=== PATIENT | male | born 1975 | race Caucasian/White ===

== ENCOUNTER 2019-09-15 09:48 | Emergency (ER) | payer BC, SELFPAY ==
--- NOTE | ~2019-09-15 | XR_ITS ---
EXAMINATION: XR tibia fibula RT 2V EXAM DATE: 09/15/2019 10:33 INDICATION: Initial encounter following injury, with pain of the right tibia/fibula. Anterior abrasi on and laceration. TECHNIQUE: Right tibia/fibula frontal and lateral projections obtained and reviewed. Correlation is m elias to right ankle exam from 2018. FINDINGS: Right tibial and fibular shafts unremarkable. There are no acute fractures or dislocations identified. There is no subcutaneous gas. There is an anterior laceration identified, with several small densities identified in the region, could be gravel or other debris at the operation site. Thi s finding has been indicated, marked on the examination for review, clinical correlation. There are no radiopaque foreign bodies. IMPRESSION: 1. Right tibia/fibula exam without acute osseous findings. 2. Anterior laceration, several small foreign bodies in or on the patient. Reviewed, dictated and finalized at location A.
[2019-09-15 09:55] VITALS: BP 172/78; PULSE 73; RESP 18; TEMP 37.1; O2SAT 99
--- NOTE | 2019-09-15 10:19 | ED.WOUNDLAC ---
HPI - Wound/Laceration General Chief Complaint: Wound/Laceration Stated Complaint: right leg laceration Time Seen by Provider: 09/15/19 10:10 Source: patient Mode of arrival: ambulatory Limitations: no limitations History of Present Illness HPI narrative: Patient presents for evaluation of 1.5 cm avulsion type laceration with surrounding abrasions that he sustained at approximately 6 PM yesterday while trying to jump over a retaining wall for fun. Patient reports tenderness and swelling to the area. Patient denies injuring any other areas, hitting his head, or having any loss of consciousness. Patient states that his only health issue is hypercholesterol which is managed by his primary care Dino Kunz. Patient states that he is up-to-date on tetanus and has had over the last 3 years. Patient denies any other symptoms or concerns. Related Data Home Medications Medication Instructions Recorded Confirmed simvastatin 10 mg DAILY 02/03/19 02/03/19 Allergies Allergy/AdvReac Type Severity Reaction Status Date / Time No Known Allergies Allergy Unknown Verified 09/15/19 10:01 Review of Systems Review of Systems: Narrative: CONSTITUTIONAL: Denies fever, chills, or sweats. EYES: Denies visual changes, redness, or discharge. ENT: Denies rhinorrhea, congestion, sore throat, or otalgia. CARDIOVASCULAR: Denies chest pain, palpitations, or edema. RESPIRATORY: Denies cough or dyspnea. GASTROINTESTINAL: Denies abdominal pain, nausea, vomiting, or diarrhea. GENITOURINARY: Denies dysuria or hematuria. SKIN: Reports laceration and abrasion denies itching. MUSCULOSKELETAL: Denies back pain, joint pain, or myalgia. NEUROLOGIC: Denies headache, numbness, dizziness, or weakness. PSYCHIATRIC: Denies anxiety or depression. [facility] Past Medical History Medical History (Updated 09/15/19 @ 11:05 by Brijesh Garces PA-C) Hypercholesterolemia Social History Social History Gender identity (if verbalized by the patient): Male Exam Narrative: Exam Narrative: GENERAL: Well-appearing, well-nourished, and in no acute distress. HEAD: Normocephalic, atraumatic. EYES: PERRLA and EOMI. ENT: Nares clear, no rhinorrhea or epistaxis. Mucous membranes moist. Oropharynx without tonsillar hypertrophy exudate or other lesions. Bilateral TMs pearly caro nonbulging NECK: Supple. No adenopathy or masses. CHEST: Clear to auscultation. No respiratory distress. No wheezes rales or rhonchi HEART: Regular rate and rhythm. Normal peripheral pulses. EXTREMITIES: Normal range of motion. No edema. SKIN: Warm, dry. Approx 1.5cm avulsion type laceration to the distal left sethi with surrounding abrasions. No active bleeding. Foreign bodies not appreciated. Small abrasion to the medial inferior aspect of the right knee. No underlying tenderness or pain. NEURO: No focal deficits. Alert and oriented x3. PSYCH: Normal mood and affect. Course Vital Signs Vital signs: Vital Signs Temperature 98.7 F 09/15/19 09:55 Pulse Rate 73 09/15/19 09:55 Respiratory Rate 18 09/15/19 09:55 Blood Pressure 172/78 H 09/15/19 09:55 Pulse Oximetry 99 09/15/19 09:55 Temperature 98.7 F 09/15/19 09:55 Pulse Rate 73 09/15/19 09:55 Respiratory Rate 18 09/15/19 09:55 Blood Pressure 172/78 H 09/15/19 09:55 Pulse Oximetry 99 09/15/19 09:55 MDM - Wound/Laceration MDM Narrative Medical decision making narrative: Discussed with the patient since it has been 16 hours since the time of injury risk of infection would be too great to attempt suturing and the wound must heal from the inside out to avoid creating abscess. The wound edges are also more of an avulsion type instead of linear laceration so even steri strips wound not be beneficial. Discussed wound care instructions. Discussed xray of tibia due to underlying tenderness to make sure there is not underlying fracture. No underlying fracture note
== END 2019-09-15 11:29 | disposition home or self-care (01) ==
PROVIDERS: Emergency Provider Emergency Medicine; PCP Nurse Practitioner Family
DX: S81.822A Laceration with foreign body, left lower leg, initial encounter (principal); S80.211A Abrasion, right knee, initial encounter; E78.00 Pure hypercholesterolemia, unspecified; X58.XXXA Exposure to other specified factors, initial encounter
CPT/HCPCS: 73590; 99283

== ENCOUNTER → 2020-09-04 11:18 | Outpatient (CLI) | payer BC, SELFPAY ==
--- NOTE | ~2020-09-04 | XR_ITS ---
XR lumbar spine 2-3V DATE: 09/04/2020 11:42 INDICATION: Low back pain TECHNIQUE: AP, lateral, coned lateral lumbosacral views COMPARISON: 12/19/2016 CT abdomen pelvis FINDINGS: Normal alignment of the lumbar spine. No fracture or bone destruction or spondylolisthesis. Lumbar and lumbosacral interspaces are well preserved. The pedicles are intact. The sacroiliac joint s appear normal. IMPRESSION: No significant abnormality Reviewed, dictated and finalized at location A. IMPRESSION: No significant abnormality
== END ==
PROVIDERS: PCP Nurse Practitioner Family; Visit Provider Nurse Practitioner Family
DX: M54.5 Low back pain (principal); M25.571 Pain in right ankle and joints of right foot
CPT/HCPCS: 72100

== ENCOUNTER 2022-01-07 10:14 | Emergency (ER) | payer BC, SELFPAY ==
[2022-01-07 12:03] VITALS: BP 136/93; PULSE 71; RESP 24; TEMP 36.6; O2SAT 100
--- NOTE | 2022-01-07 12:49 | ED.URI ---
HPI - URI/Sore Throat General Chief Complaint: Upper Respiratory Infection Stated Complaint: cough Source: patient Mode of arrival: ambulatory History of Present Illness HPI Narrative: This is a 46-year-old male who presented to our urgent care with complaints of having a cough and congestion . Patient is on here a couple weeks ago treated for sinusitis. Patient notes that his symptoms improved but they have come back. He did not take anything at home for his symptoms. The patient denies SOB, CP, palpitation, extremity numbness, lightheadedness, dizziness, constipation, diarrhea, chills, or fever. Discharge instructions reviewed with patient, as well as provided in writing per nursing staff. The instructions also include specific and strict return/GO TO THE ER as well as f/u information. All questions have been answered, and the patient and/or family deny any further questions with discharge and discharge plan. Related Data Home Medications Medication Instructions Recorded Confirmed simvastatin 10 mg tablet 10 mg DAILY 02/03/19 02/03/19 Allergies Allergy/AdvReac Type Severity Reaction Status Date / Time No Known Allergies Allergy Unknown Verified 09/15/19 10:01 Review of Systems Review of Systems: A 14 organ system Review of Systems was performed and pertinent positives included in the HPI, otherwise remaining ROS is negative. [facility] Past Medical History Medical History Hypercholesterolemia Social History Social History Gender identity (if verbalized by the patient): Male Exam Narrative: GENERAL: This is a well-nourished, well-developed patient, in no apparent distress. HEAD: normocephalic, atraumatic. EYES: PERRL. Sclera clear/white. Vision is grossly intact. EARS: External ears normal, auditory canals clear and without drainage, TMs normal without perforation. Hearing grossly intact. NOSE: External nose normal with no obvious nasal discharge, nares without redness, no rhinorrhea. THROAT: Mucous membranes moist, posterior pharynx clear. NECK: Neck supple, non-tender without lymphadenopathy, masses or thyromegaly. CARDIOVASCULAR: Regular rate and rhythm without murmurs, gallops, or rubs. RESPIRATORY: Clear to auscultation. Breath sounds equal bilaterally. No wheezes, rales, or rhonchi. GASTROINTESTINAL: Abdomen soft, non-tender, nondistended. Bowel sounds are active. No hepato-splenomegaly, or palpable masses. No guarding. SKIN: warm, intact with no suspicious lesions or rash, good texture and turgor. NEURO: awake, alert, and oriented to person, place and time. There were no obvious focal neurologic abnormalities. EXTREMITIES: Normal range of motion. No edema. No calf tenderness. Course Course Emergency Course: Patient will be treated for influenza a with Tessalon Perles guaifenesin and Tamiflu Level of Care: Express Care Visit Vital Signs Vital signs: Vital Signs Temperature 97.8 F 01/07/22 12:03 Pulse Rate 71 01/07/22 12:03 Respiratory Rate 24 H 01/07/22 12:03 Blood Pressure 136/93 H 01/07/22 12:03 Pulse Oximetry 100 01/07/22 12:03 Oxygen Delivery Room Air 01/07/22 12:03 Temperature 97.8 F 01/07/22 12:03 Pulse Rate 71 01/07/22 12:03 Respiratory Rate 24 H 01/07/22 12:03 Blood Pressure 136/93 H 01/07/22 12:03 Pulse Oximetry 100 01/07/22 12:03 Oxygen Delivery Room Air 01/07/22 12:03 MDM - URI/Sore Throat Differential Diagnosis Differential diagnosis: Likely upper respiratory infection, viral infection and influenza Lab Data Labs: Influenza A Screen Positive Reference Range: Negative Influenza B Screen Negative Reference Range: Negative Discharge Plan Discharge Clinical Impression: Influenza Nella
== END 2022-01-07 12:55 | disposition home or self-care (01) ==
PROVIDERS: Emergency Provider Nurse Practitioner; PCP Nurse Practitioner Family
DX: J10.1 Influenza due to other identified influenza virus with other respiratory manifestations (principal); E78.00 Pure hypercholesterolemia, unspecified
CPT/HCPCS: 87804; 99213; G0463

== ENCOUNTER 2022-06-21 15:41 | Outpatient (CLI) | payer BC, SELFPAY ==
--- NOTE | ~2022-06-21 | CT_ITS ---
EXAMINATION: CT sinus wo con DATE: 06/22/2022 06:44 INDICATION: Chronic sinusitis TECHNIQUE: Computed tomography (CT) of the paranasal sinuses was performed without intravenous contra st. The dose-length product was 258.77 mGy-cm. Automated exposure control and iterative reconstructio n technique were employed. COMPARISON: CT dated 05/20/2015 FINDINGS: There is mucosal thickening of the right maxillary sinus. Rightward nasal septal deviation. Ostiomeatal units are patent. No air-fluid levels. No mucoperiosteal reaction. Mastoids are pneumati zed. IMPRESSION: 1. Minimal right maxillary sinus disease. Reviewed, dictated and finalized at location B.
== END 2022-06-21 15:42 ==
LOC: MICIMG 15:43
PROVIDERS: PCP Otolaryngology; Visit Provider Otolaryngology
DX: J32.9 Chronic sinusitis, unspecified (principal)
CPT/HCPCS: 70486

== ENCOUNTER 2022-10-07 10:53 | Outpatient (CLI) | payer BC, SELFPAY ==
--- NOTE | ~2022-10-07 | CT_ITS ---
EXAMINATION: CT abdomen pelvis w con DATE: 10/07/2022 11:12 INDICATION: Right lower quadrant pain TECHNIQUE: Computed tomography (CT) of the abdomen and pelvis was performed with 100 cc Omnipaque 350 intravenous contrast. The dose-length product was 1068.57 mGy-cm. Automated exposure control and ite rative reconstruction technique were employed. COMPARISON: CT dated 12/19/2016. FINDINGS: Lung bases unremarkable. Heart size normal. No significant pleural or pericardial effusion. The liver, spleen, pancreas, adrenal glands are unremarkable. There is a subcentimeter hypodensity in the left kidney, most likely benign cysts. There is a 3.3 cm right renal cyst. There is a 3 mm proxi mal right ureteral stone with mild hydronephrosis. There is mild proximal ureteral ileal enhancement. Cannot exclude ascending urinary tract infection. Gallbladder is present. Nonobstructive bowel gas p attern. Normal appendix. Colonic diverticulosis without evidence for diverticulitis. No abnormal pelv ic masses or fluid collections. Bladder is unremarkable. IMPRESSION: 1. Proximal right ureteral stone measuring 3 mm with mild hydronephrosis. Mild urothelial enhancement , suspicious for ascending urinary tract infection. Reviewed, dictated and finalized at location B. IMPRESSION: 1. Proximal right ureteral stone measuring 3 mm with mild hydronephrosis. Mild urothelial enhancement, suspicious for ascending urinary tract infection.
== END 2022-10-07 10:54 ==
PROVIDERS: PCP Nurse Practitioner Family; Visit Provider Nurse Practitioner Family
DX: R10.31 Right lower quadrant pain (principal); N20.1 Calculus of ureter
CPT/HCPCS: 74177; Q9967

== ENCOUNTER 2023-05-12 07:59 | Emergency (ER) | payer BC, SELFPAY ==
--- NOTE | ~2023-05-12 | XR_ITS ---
EXAMINATION: XR ankle RT min 3V DATE: 05/12/2023 08:36 INDICATION: Right ankle injury. TECHNIQUE: 4 views of right ankle were obtained. COMPARISON: Right tibia and fibula radiographs 09/15/2019 FINDINGS: There is a comminuted fracture of distal tip of fibula. Joint spaces are normal. There is a nkle soft tissue swelling. IMPRESSION: 1. Comminuted fracture of distal tip of fibula. Reviewed, dictated and finalized at location A.
[2023-05-12 08:05] VITALS: BP 169/98; PULSE 85; RESP 18; TEMP 36.7; O2SAT 98
[2023-05-12] MEDS: IBUPROFEN 400 MG TABLET PO (09:25)
[2023-05-12] MEDS: ACETAMINOPHEN 500 MG TABLET 1000 MG PO (09:25)
--- NOTE | 2023-05-12 14:05 | ED.LOWEXIN ---
HPI - Extremity Injury (Lower) General Chief Complaint: Extremity Injury, Lower Stated Complaint: right ankle injury Time Seen by Provider: 05/12/23 08:14 History of Present Illness HPI Narrative: Patient presenting here after he tripped and fell last night and twisted his right ankle. Is hurting and swollen today so came in here. He has been limping on it. Related Data Home Medications Medication Instructions Recorded Confirmed simvastatin 10 mg tablet 10 mg PO DAILY 02/03/19 01/07/22 Allergies Allergy/AdvReac Type Severity Reaction Status Date / Time No Known Allergies Allergy Unknown Verified 05/12/23 08:00 Review of Systems Review of Systems: M/S: Tenderness right ankle SKIN: Bruising right ankle NEURO: [No focal numbness or weakness] PMFSH Past Medical History Medical History Hypercholesterolemia Social History Social History Gender identity (if verbalized by the patient): Male Exam Narrative: EXAMINATION OF ORGAN SYSTEMS/BODY AREAS: Constitutional: Vital signs per nursing GENERAL:[No acute distress, non-toxic appearing.] HEAD: Normal with no signs of head trauma. EYES: EOMI, conjunctiva normal ENT: Hearing grossly intact LUNGS: Nonlabored breathing. HEART: [Regular rate and rhythm], normal DP pulses and good cap refill ABD: [Soft], [nontender to palpation] EXT: Normal range of motion, tenderness to palpation and swelling right lateral malleolus SKIN: Bruising and swelling right ankle NEURO: [Alert and oriented x 3. No gross focal sensory or strength deficits.] PSYCH: Normal affect Course Vital Signs Vital signs: Vital Signs Temperature 98.1 F 05/12/23 08:05 Pulse Rate 85 05/12/23 08:05 Respiratory Rate 18 05/12/23 08:05 Blood Pressure 169/98 H 05/12/23 08:05 Pulse Oximetry 98 05/12/23 08:05 Temperature 98.1 F 05/12/23 08:05 Pulse Rate 85 05/12/23 08:05 Respiratory Rate 18 05/12/23 08:05 Blood Pressure 169/98 H 05/12/23 08:05 Pulse Oximetry 98 05/12/23 08:05 Procedures Orthopedic Splinting/Casting Injury #1: Splinting/Casting Date: 05/12/23 Splinting/Casting Time: 10:00 Side: right Lower Extremity Injury Location: ankle Lower Extremity Immobilizer: posterior splint Splint: customized in ED Pre-Procedure Neuro Vascular Exam: normal Post-Procedure Neuro Vascular Exam: normal MDM - Extremity Injury (Lower) MDM Narrative Medical decision making narrative: Patient presents here with right ankle twisting injury, x-ray does show distal fibular fracture, patient will be placed in ankle splint, he declined any narcotics, stable for discharge with follow-up to Orthopedics, patient and at bedside agreeable to this plan. Discharge Plan Discharge Clinical Impression: Closed fibular fracture Patient Disposition: Home, Self-Care Condition: Stable Instructions: Antibiotic Form, Ankle Fracture (ED) Prescriptions: No Action simvastatin 10 mg tablet 10 mg PO DAILY oseltamivir [Tamiflu] 75 mg capsule 75 mg PO Q12H 5 Days Qty: 10 0RF benzonatate 200 mg capsule 200 mg PO TID PRN (Reason: cough) Qty: 30 0RF guaifenesin 400 mg tablet 400 mg PO Q4H PRN (Reason: congestion) Qty: 30 0RF albuterol sulfate [Proventil HFA] 90 mcg/actuation HFA aerosol inhaler 2 puff inhalation QID PRN (Reason: cough) Qty: 6.7 0RF Follow-up/Referrals: Ran Teran MD [Physician] - 3 Days Ivonne Kunz APRN [Primary Care Provider] -
== END 2023-05-12 10:03 | disposition home or self-care (01) ==
PROVIDERS: Emergency Provider Emergency Medicine; PCP Nurse Practitioner Family
DX: S82.831A Other fracture of upper and lower end of right fibula, initial encounter for closed fracture (principal); E78.00 Pure hypercholesterolemia, unspecified; W01.0XXA Fall on same level from slipping, tripping and stumbling without subsequent striking against object, initial encounter; X50.9XXA Other and unspecified overexertion or strenuous movements or postures, initial encounter
CPT/HCPCS: 29515; 73610; 99284; A9270

== ENCOUNTER 2023-08-28 15:35 | Outpatient (CLI) | payer BC, SELFPAY ==
--- NOTE | ~2023-08-28 | MR_ITS ---
MRI of the cervical spine Clinical History: Paresthesia Technique: Axial T2-weighted and gradient images, and sagittal T1-weighted, T2-weighted, and STIR kamran ges were acquired. COMPARISON: 07/19/2016 Findings: There is no fracture or subluxation of the cervical spine. Vertebral bodies maintain normal height and line. There is intervertebral disc prosthesis at C6-C7 with associated focal susceptibili ty artifact. There is probable mild atypical intraosseous hemangioma of the T2 vertebral body, which is increased in extent from prior exam. No other significant bone marrow signal abnormality seen. At C2-C3, there is no significant disc bulge or herniation. There is minimal facet arthropathy. No ce ntral canal stenosis, cord compression, or definite neural foraminal narrowing. At C3-C4, there is mild degenerative disc change is mild disc osteophyte complex. No canal stenosis o r cord compression. There is probable mild bilateral neural foraminal narrowing. At C4-C5, there is no significant disc bulge or herniation. No spinal canal stenosis or cord compress ion. Possible minimal bilateral neural foraminal narrowing. At C5-C6, there is mild disc osteophyte complex, with minimal flattening of the ventral cord. Bilater al neural foramina are preserved. At C6-C7, there is no disc bulge or herniation. No spinal canal stenosis or cord compression. Probabl e mild left neural foraminal narrowing. Right neural foramen preserved. Paravertebral soft tissues are unremarkable. Impression: Mild spondylosis, as above, probably worst at C5-C6 with minimal flattening the ventral cord. Intervertebral disc prosthesis at C6-C7. 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 Reviewed, dictated and finalized at [facility]. Impression: Mild spondylosis, as above, probably worst at C5-C6 with minimal flattening the ventral cord. Intervertebral disc prosthesis at C6-C7. 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
== END 2023-08-28 15:36 | disposition home or self-care (01) ==
PROVIDERS: PCP Nurse Practitioner Family; Visit Provider Nurse Practitioner Family
DX: R20.0 Anesthesia of skin (principal); R20.2 Paresthesia of skin; M47.892 Other spondylosis, cervical region
CPT/HCPCS: 72141

== ENCOUNTER 2023-10-04 17:32 | Emergency (ER) | payer BC, SELFPAY ==
--- NOTE | ~2023-10-04 | XR_ITS ---
EXAMINATION: XR shoulder RT min 2V DATE: 10/04/2023 18:11 INDICATION: Right shoulder pain post injury TECHNIQUE: AP internally and externally rotated, AP oblique externally rotated and transscapular Y vi ews of the right shoulder were obtained. COMPARISON: None FINDINGS: Normal alignment. No fracture. Glenohumeral joint is normal. Mild acromioclavicular osteoarthritis. Soft tissues are unremarkable. Visualized portions of the lungs are clear. Metallic likely interbody fusion device projecting over C6-C7 likely for lower cervical anterior spinal fusion. IMPRESSION: Mild right acromio clavicular osteophytes. No acute osseous abnormality. Reviewed, dictated and finalized at location A.
[2023-10-04 17:35] VITALS: BP 171/105; PULSE 93; RESP 19; TEMP 36.6; O2SAT 97
--- NOTE | 2023-10-04 17:52 | ED.UPPEXIN ---
HPI - Extremity Injury (Upper) General Chief Complaint: Extremity Injury, Upper Stated Complaint: R Shoulder Pain Time Seen by Provider: 10/04/23 17:41 Source: patient Mode of arrival: ambulatory Limitations: no limitations History of Present Illness HPI narrative: Patient is a 47 y/o male who presents to the ED with c/o R shoulder pain. Patient reports he was wearing a get trash into a trash can just prior to arrival and attempted to throw the bag over his shoulder with his R hand. He felt a pop in his R shoulder with sharp pain. has had limited range of motion since then. Denies any other injuries. Denies numbness. Took ibuprofen prior to arrival. Related Data Home Medications Medication Instructions Recorded Confirmed pravastatin 40 mg tablet 40 mg PO DAILY 05/16/23 08/14/23 Allergies Allergy/AdvReac Type Severity Reaction Status Date / Time No Known Allergies Allergy Unknown Verified 08/14/23 10:58 Review of Systems Review of Systems: All systems reviewed & are unremarkable except as noted in HPI. All systems reviewed & are unremarkable except as noted in HPI and below PMFSH Past Medical History Medical History (Updated 10/04/23 @ 19:00 by Rayna Cain PA-C) Closed fracture of right distal fibula Hypercholesterolemia Surgical History Surgical History H/O cervical discectomy Family History Family History (Updated 08/14/23 @ 11:09 by Jenny Diaz MA) Unknown Hypertension High cholesterol Father High cholesterol Heart disease Social History Social History (Updated 08/14/23 @ 11:00 by Jenny Diaz MA) Social History: caffeine use Smoking status: Never smoker Alcohol intake: current Drinks per week: 2 Substance use: never Do You Feel Safe in your Home?: Yes Lack of Transportation: No Lack of Food: Never True Current Housing: I Have Housing Concerned About Future Housing: No Difficulty Paying Gas/Electric Bills: No Difficulty Paying for Meds: No Currently Unemployed: No Living arrangements: with family Occupation/Education: occupation 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 HEAD: Normocephalic, atraumatic. RESPIRATORY: Airway patent, respirations nonlabored. CARDIOVASCULAR: Regular rate and rhythm. Radial pulses intact. MUSCULOSKELETAL: No gross deformities. Limited range of motion of right shoulder abduction, flexion, rotation. Tenderness to palpation throughout anterior proximal humerus. Sensation intact throughout right upper extremity. No tenderness throughout R elbow. SKIN: Warm, dry, normal color. NEURO: A&O X3. Speech clear. PSYCHIATRIC: Appropriate mood and affect. Normal interaction. Course Vital Signs Vital signs: Vital Signs Temperature 97.9 F 10/04/23 17:35 Pulse Rate 93 10/04/23 17:35 Respiratory Rate 19 10/04/23 17:35 Blood Pressure 171/105 H 10/04/23 17:35 Pulse Oximetry 97 10/04/23 17:35 Oxygen Delivery Room Air 10/04/23 17:35 Temperature 97.9 F 10/04/23 17:35 Pulse Rate 93 10/04/23 17:35 Respiratory Rate 19 10/04/23 17:35 Blood Pressure 171/105 H 10/04/23 17:35 Pulse Oximetry 97 10/04/23 17:35 Oxygen Delivery Room Air 10/04/23 17:35 MDM - Extremity Injury (Upper) MDM Narrative Medical decision making narrative: Patient?s injury is consistent with musculoskeletal etiology. No signs of neurologic or vascular compromise on physical examination. Compartments are soft without signs of compartment syndrome. XR without acute osseous abnormality, showing osteophytes. Discussed imaging findings. Discussed likelihood of rotator cuff injury or muscular strain. Patient is felt to be stable for discharge home and further
[2023-10-04 19:02] VITALS: BP 150/89; PULSE 88; RESP 16; O2SAT 97
[2023-10-04] MEDS: HYDROcodone/acetaminophen (*CRX) 5-325 MG TABLET 1 TAB PO (19:02)
[2023-10-04 19:13] VITALS: BP 148/78; PULSE 89; RESP 15; O2SAT 100
== END 2023-10-04 19:15 | disposition home or self-care (01) ==
PROVIDERS: Emergency Provider Physician Assistant; PCP Nurse Practitioner Family
DX: S46.911A Strain of unspecified muscle, fascia and tendon at shoulder and upper arm level, right arm, initial encounter (principal); E78.00 Pure hypercholesterolemia, unspecified; M25.711 Osteophyte, right shoulder; X50.0XXA Overexertion from strenuous movement or load, initial encounter
CPT/HCPCS: 73030; 99283; A4565; A9270

== ENCOUNTER 2023-10-23 13:21 | Outpatient (CLI) | payer BC, SELFPAY ==
--- NOTE | ~2023-10-23 | MR_ITS ---
EXAMINATION: MR shoulder RT wo con DATE: 10/23/2023 14:22 INDICATION: Right shoulder pain. TECHNIQUE: Magnetic resonance imaging (MRI) of the right shoulder was performed without intravenous c ontrast. Sequences included axial PD-weighted FS FSE, coronal oblique PD-weighted FS FSE, coronal obl ique T2-weighted FS FSE, sagittal PD-weighted FS FSE, and sagittal T1-weighted SE. COMPARISON: None. FINDINGS: Coracoacromial arch: The acromion undersurface is curved in morphology (type II). The coracoacromial ligament is normal. M ild acromioclavicular osteoarthritis. Rotator cuff: Mild subscapularis tendinopathy without discrete tear. Full-thickness or near full-thickness articula r sided tear along the greater tuberosity involving the full AP width of the supraspinatus and infras pinatus tendons. There are few intact thin bursal sided fibers extending to the greater tuberosity ho wever is of indeterminate functional integrity and is also unclear whether these together form thick contiguous intact bursal surface or more likely separate intact fibers. There is also a portion of th e infraspinatus tendon which remains attached to the posterior aspect middle facet footplate with the sided tear extending up to 2.5 similar medial from the footplate. The articular sided tear margin is retracted up to 4.5 similar medially to the level of the rim of the glenoid. There is moderate tendi nopathy extending 2-3 cm medially from the tear margin. The teres minor tendon is normal. There is mi ld feathery muscular edema within the infraspinatus muscle belly. There are also small intramuscular ganglion cysts within the supraspinatus and infraspinatus muscle bellies standing up to 8 cm medially from the greater tuberosity. No fatty muscle atrophy suggesting the tears are recent. Biceps tendon, glenoid labrum and glenohumeral cartilage: Long head of the biceps tendon is normal. Focal mild labral degeneration at the 10:30-11:00 position of the posterior superior glenoid labrum. Remainder of the glenoid labrum is normal. There is mild pa rtial-thickness cartilage loss with smooth chondral surface along the humeral head. Moderate partial- thickness cartilage loss which appears to involve greater than 50% the cartilage thickness but with s mooth chondral surface along the cephalad third of the glenoid. Fluid: Small glenohumeral joint effusion with mild synovitis at the axillary, posterior and deep subscapular recesses of the joint space. No loose osteochondral bodies. Small amount of fluid in the subacromial /subdeltoid bursa which could be due to either mild bursitis or decompression of the glenohumeral jaylene nt effusion through the full-thickness component to the rotator cuff tear. Bones: Small low signal intensity bone island at the medial aspect of the humeral head. Otherwise normal mar row signal with no edema, fracture or pathologic marrow replacing process. IMPRESSION: 1. Full and/or near full-thickness articular sided tear along the entire AP width of the greater tube rosity of the entire supraspinatus and infraspinatus tendons. 2. Mild glenohumeral osteoarthritis with focal degeneration at the posterior superior glenoid labrum. Reviewed, dictated and finalized at location B. IMPRESSION: 1. Full and/or near full-thickness articular sided tear along the entire AP wid th of the greater tuberosity of the entire supraspinatus and infraspinatus tend ons. 2. Mild glenohumeral osteoarthritis with focal degeneration at the posterior martinez perior glenoid labrum.
== END 2023-10-23 13:22 | disposition home or self-care (01) ==
LOC: GOSHIMG 13:22
PROVIDERS: PCP Orthopaedic Surgery; Visit Provider Orthopaedic Surgery
DX: M19.011 Primary osteoarthritis, right shoulder (principal); M75.101 Unspecified rotator cuff tear or rupture of right shoulder, not specified as traumatic
CPT/HCPCS: 73221

== ENCOUNTER 2024-05-06 01:50 | Day surgery (SDC) | payer BC, SELFPAY ==
[2024-04-25 15:01] VITALS: BMI 29.9
--- OUTSIDE RECORDS SUMMARY | 2024-05-06 01:57 | XMS_ITS | Continuity of Care Document ---
Author Organization [facility] Address [address] [place] [address] Phone Care Team Providers Care Enrollment Advisor Name Role Phone Gary Kohler PT Unavailable Unavailable Procedures Procedure Date Therapeutic Activities Therapeutic Exercise Manual Therapy Therapeutic Activities Therapeutic Exercise Manual Therapy Therapeutic Activities Therapeutic Exercise Manual Therapy Therapeutic Activities Therapeutic Exercise Manual Therapy Therapeutic Activities Therapeutic Exercise Manual Therapy Therapeutic Activities Therapeutic Exercise Manual Therapy Therapeutic Activities Therapeutic Exercise Manual Therapy Therapeutic Activities Therapeutic Exercise Manual Therapy PT Evaluation Moderate Complexity Therapeutic Activities Therapeutic Exercise Advance Directives Directive Yes / No Effective Date File Name No Information Encounters Encounter Description Practice Location Reason(s) For Visit Diagnoses Date Provider Providers Copied on Encounter [facility], [address], [place], [place], [id number], [place] tel:[phone] [facility] No Information Jose F Vega. . Referring Provider: Noemi Winn [address], [place], [address]. tel:[phone] [facility], [address], [place], [place], [id number], [place] tel:[phone] [place] No Information Jose F Gary. . Referring Provider: Noemi Winn, [address], [place], [address]. tel:[phone] [facility], [place], [place], [id number], [place] tel:[phone] [place] No Information Jose F Gary. . Referring Provider: Noemi Winn, [address], [place], [address]. tel:[phone] [facility], [place], [place], [id number], [place] tel:[phone] [place] No Information Jose F Gary. . Referring Provider: Noemi Winn, [address], [place], [address]. tel:[phone] [facility], [place], [place], [id number], [place] tel:[phone] [place] No Information Jose F Gary. . Referring Provider: Noemi Winn, [address], [place], [address]. tel:[phone] [facility], [place], [place], [id number], [place] tel:[phone] [place] No Information Jose F Gary. . Referring Provider: Noemi Winn, [address], [place], [address]. tel:[phone] [facility], [place], [place], [id number], [place] tel:[phone] [facility] No Information Jose F DuarteynTeo . Referring Provider: Noemi Winn [address], [place], [address]. tel:[phone] [facility], [address] [place] [address] [address], [place], [place], [id number], tel:[phone] [facility] No Information Jose F DuarteynTeo . Referring Provider: Noemi Winn [address], [place], [address]. tel:[phone] [facility], [address] [place] [address] [address], [place], [place], [id number], [place] tel:[phone] [place] No Information Jose F Duarteyn. . Referring Provider: Noemi Winn [address], [place], [address]. tel:[phone] Family History Family Member Type Diagnosis Age At Onset No Information Payers Payer name Insurance type Covered libertarian ID Authormike quiñones(s) [facility] [id number] Social History Type Description Quantity Date Captured Comments Sex Male Smoking Status No Information Chief Complaint And Reason For Visit No Information Reason For Referral Reason For Referral No Information History Of Present Illness Encounter Date Complaint History Of Prese nt Illness No Information Functional Status Date Functional Assessmen t No Information Instructions Date Instruction Additional Infor mation No Information Assessments Type Assessment Date No Information Patient Care Teams Name Effective Dates (start - stop) Status Members No Information
--- OUTSIDE RECORDS SUMMARY | 2024-05-06 01:57 | XMS_ITS ---
Author Organization 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 History of nasal congestion, drainage and itchy/watery eyes. Symptoms seemed to worsen over the Winter, however occur year-round. Now following avoidance measures and medication regimen, however still with nightly drainage., Chronic lower airways symptoms concerning for possible asthma, frequent cough that he feels is related to drainage. No history of inhaler use of hospitalizations due to lower airway symptoms. Medications Medication SIG (Take, Route, Frequency, Duration) Notes Start Date End Date Status Lisinopril 5 MG 1 tab(s) orally once a day Active Pravastatin Sodium 40 MG 1 tab(s) orally once a day Active traZODone HCl 50 MG as directed orally Active CETIRIZINE 10 mg 1 tab(s) orally once a day for 30 days Active Montelukast Sodium 10 MG 1 tablet Orally Once a day for 30 days 10/30/2023 Active Azelastine HCl 137 MCG/SPRAY 2 spray(s) intranasally 2 times a day for 30 days 06/05/2023 Active Fluticasone Propionate 50 MCG/ACT 1 spray(s) in each nostril twice a day for 30 days Active Ipratropium [place] 0.06 % 2 sprays in each nostril Nasally Four times a day for 30 days 10/30/2023 Active NASAL WASHES N/A DIRECTED INTRANASALLY NEEDED for 30 *Please review for potential replacement for e-prescription and drug interaction check* 06/05/2023 Active Fluticasone Propionate 50 MCG/ACT 1 spray(s) in each nostril twice a day for 30 days 06/05/2023 Active Cetirizine HCl 10 MG 1 tab(s) orally once a day for 30 days 06/05/2023 Active AZELASTINE NASAL 137 mcg/inh 2 spray(s) intranasally 2 times a day for 30 days Active FLUTICASONE NASAL 50 mcg/inh 1 spray(s) in each nostril twice a day for 30 days Active Social History Tobacco Use: Social History Observation Description Date Details (start date - stop date) Former Smoker NA - NA Smoking Smart Form: Question Answer Notes Are you a: never smoker Tobacco Control (Standard) Question Answer Notes Tobacco use: Former smoker Vital Signs Blood pressure systolic 163 mm Hg 10/30/19 24 Blood pressure diastolic 106 mm Hg 024 Height 72 in 10/30/2023 Weight 234.4 lbs 10/30/2023 BMI 31.79 kg/m2 10/30/2023 Oximetry 98 % 10/30/2023 Encounters Encounter Location Date Provider Diagnosis [facility] [address] [place] [address] 10/30/2023 Alisha Blanton Allergic rhinitis du e to pollen J30.1 ; Allergic rhinitis due to animal (cat) (dog) hair and dander J30.81 ; Chronic cough R05.3 ; Unspecified abdominal pain R10.9 and Essential (primary) hypertension I10 Assessments Encounter Date Diagnosis (ICD Code) Assessment Notes Treatment Notes Treatment Clinical Notes Section Notes 10/30/2023 Allergic rhinitis due to pollen (ICD-10 - J30.1) Christopher has been experiencing upper airway symptoms concerning for uncontrolled atopic disease. His symptoms seemed to worsen this Winter, however occur year-round. He is now taking daily Zyrtec, Flonase and azelastine. He feels these interventions have been beneficial, however still with nasal drainage that is causing sleep disturbances. Of note, Christopher does feel anxiety is a contributing factor as well. - Discussed skin testing to aeroallergens last visit, however unable to perform at this time as Christopher takes trazodone. - Aeroallergen ImmunoCaps ordered that showed positive results to weed and cat. - Accordingly, we have encouraged his medication regimen, discussed nasal washes and allergy-specific avoidance measures. Will start trial of ipratropium bromide and LTRA, BBW discussed. Hold azelastine. - Briefly discussed SCIT, which Christopher is not interested at this time. Unable to perform SPT as above. Christopher is interested in trial of medications and working on avoidance measures. - Christopher has seen ENT in the past, underwent sinus surgery approximately 3 years ago without significant benefit. - Follow-up in 6 months for further evaluation and management, or sooner if symptoms do not improve 10/30/2023 Allergic rhinitis due to animal (cat) (dog) hair and dander (ICD-10 - J30.81) Follow allergen avoidance, meds and consider SCIT as an adjunctive treatment to current regimen 10/30/2023 Chronic cough (ICD-10 - R05.3) Christopher endorses almost daily cough, states this has been ongoing for many years. Feels it is related to drainage but also comes from my chest. He denies associated shortness of breath or wheezing. He denies clear triggers. He has never been prescribed an inhaler or hospitalized due to lower airway symptoms. He does endorse prior history of smoking, quit approximately 7 years ago, previously smoked 1 PPD x 20 years. - Christopher deferred spirometry at prior visits. - Considerations for cough include atopic disease vs GERD vs other. - Christopher feels his symptoms have improved. - Return in 6 months as above for further evaluation and management 10/30/2023 Unspecified abdominal pain (ICD-10 - R10.9) Christopher reports occasional abdominal pain and non-specific symptoms that he feels is related to dairy consumption. He denies facial swelling, skin changes or lower airway symptoms. He is not currently avoidant of dairy products. - Discussed that history is not consistent with an IgE-mediated hypersensitivity reaction, more so intolerance. Skin testing is not indicated at this time. - Discussed journaling for triggers and starting an elimination diet. Consider consult with nutrition. - Consider consult with GI 10/30/2023 Essential (primary) hypertension (ICD-10 - I10) BP elevated on PE. Recheck at follow-up and discuss with PMD. No symptoms of hypertensive crisis 10/30/2023 Other Plan Of Treatment Medication Medication Name Sig Start Date Stop Date Notes CETIRIZINE 10 mg 1 tab(s) orally once a day for 30 days Montelukast Sodium 10 MG 1 tablet Orally Once a day for 30 days 10/30/2023 Ipratropium [place] 0.06 % 2 sprays in e ach nostril Nasally Four times a day for 30 days 10/30/2023 AZELASTINE NASAL 137 mcg/inh 2 spray(s) intranasally 2 times a day for 30 days FLUTICASONE NASAL 50 mcg/inh 1 spray(s) in each nostril twice a day for 30 days Treatment Notes Assessment Notes Allergic rhinitis due to pollen Christopher has been experiencing upper airway symptoms concerning for uncontrolled atopic disease. His symptoms seemed to worsen this Winter, however occur year-round. He is now taking daily Zyrtec, Flonase and azelastine. He feels these interventions have been beneficial, however still with nasal drainage that is causing sleep disturbances. Of note, Christopher does feel anxiety is a contributing factor as well. - Discussed skin testing to aeroallergens last visit, however unable to perform at this time as Christopher takes trazodone. - Aeroallergen ImmunoCaps ordered that showed positive results to weed and cat. - Accordingly, we have encouraged his medication regimen, discussed nasal washes and allergy-specific avoidance measures. Will start trial of ipratropium bromide and LTRA, BBW discussed. Hold azelastine. - Briefly discussed SCIT, which Christopher is not interested at this time. Unable to perform SPT as above. Christopher is interested in trial of medications and working on avoidance measures. - Christopher has seen ENT in the past, underwent sinus surgery approximately 3 years ago without significant benefit. - Follow-up in 6 months for further evaluation and management, or sooner if symptoms do not improve Allergic rhinitis due to ani mal (cat) (dog) hair and dander Follow allergen avoidance, meds and cons ider SCIT as an adjunctive treatment to current regimen Chronic cough Christopher endorses almost daily cough, states this has been ongoing for many years. Feels it is related to drainage but also comes from my chest. He denies associated shortness of breath or wheezing. He denies clear triggers. He has never been prescribed an inhaler or hospitalized due to lower airway symptoms. He does endorse prior history of smoking, quit approximately 7 years ago, previously smoked 1 PPD x 20 years. - Christopher deferred spirometry at prior visits. - Considerations for cough include atopic disease vs GERD vs other. - Christopher feels his symptoms have improved. - Return in 6 months as above for further evaluation and management Unspecified abdominal pain Christopher reports occasional abdominal pain and non-specific symptoms that he feels is related to dairy consumption. He denies facial swelling, skin changes or lower airway symptoms. He is not currently avoidant of dairy products. - Discussed that history is not consistent with an IgE-mediated hypersensitivity reaction, more so intolerance. Skin testing is not indicated at this time. - Discussed journaling for triggers and starting an elimination diet. Consider consult with nutrition. - Consider consult with GI Essential (primary) hypertension BP elev ated on PE. Recheck at follow-up and discuss with PMD. No symptoms of hypertensive crisis Next Appt Details Follow Up: 6 Months or soone r, Reason: Evaluation and Management Progress Notes * Christopher LEAHYDOB:1975 ( 47 yo M)Acc No.[id number]:10/30/2023 Progress Notes Patient: Christopher SHEPPARD Provider: TEX ColladoC :1975 A ge:47 Y S ex:Male Date:10/30/2023 Address:[address] [place] [address], [place] , [id number] Pcp:CONNER Juarez Subjective: * Chief Complaints: * A follow-up: ImmunoCAPs positive to weeds and cat. History of nasal congestion, drainage and itchy/watery eyes. Symptoms seemed to worsen over the Winter, however occur year-round. Now following avoidance measures and medication regimen, however still with nightly drainage.Chronic lower airways symptoms concerning for possible asthma, frequent cough that he feels is related to drainage. No history of inhaler use of hospitalizations due to lower airway symptoms. * HPI: * Introduction: I had the pleasure of seeing Lauro Leahy, a 47-year-old male with past medical history significant for ARC, hypertension and hypercholesteremia, who returns today for follow-up evaluation. He is alone for today's visit. Christopher has been experiencing upper airway symptoms concerning for uncontrolled atopic disease. He feels his symptoms worsened over the Winter, however occur year-round. He has two dogs and one cat at home, does endorse increased upper airway symptoms when near his pets.Christopher takes daily trazodone, due to this we are unable to perform skin testing. He had aeroallergen ImmunoCaps drawn that showed positive results to weed and cat. Total IgE 64. He is now taking Zyrtec, also using azelastine and Flonase. Christopher returns with ongoing complaints of nasal drainage/congestion, which is causing sleep disturbances. Christopher also reports cough that has been ongoing for many years. He denies clear triggers. Feels it is caused by drainage, but at times states it comes from my chest. He has never been prescribed an inhaler, no history of hospitalizations due to lower airway symptoms. He does report smoking history, previously smoked 1 PPD for approximately 20 years, he quit smoking 7 years ago. Christopher deferred spirometry at prior visits. Christopher feels his cough is much more mild lately. Additionally, Christopher reports abdominal upset and not feeling right with dairy consumption. He denies associated systemic symptoms. Does not currently avoid dairy products.Today, he reports no fevers, chills, night sweats or other constitutional symptoms. * ROS: A LLERGY: Positive p er the HPI and history, otherwise unremarkable.? S PECIAL SENSES: Positve for n one. C ONSTITUTIONAL: Positive for n one. E NT: Positive p er the HPI and history, otherwise unremarkable.? R ESPIRATORY: Positive p er the HPI and history, otherwise unremakable.? O PHTHALMOLOGY: Positive for p er the HPI and history, otherwise unremarkable. E NDOCRINOLOGY: Positive for n one. C ARDIOLOGY: Positive for n one. G ASTROENTEROLOGY: Positive for n one. U ROLOGY: Positive for n one. D ERMATOLOGY: Positive for p er the HPI and history, otherwise unremakable. N EUROLOGY: Positive for n one. H EMATOLOGY/LYMPH: Positive for n one. M USCULOSKELETAL: Positive for n one. P SYCHOLOGY: Positive for n one. A ll other review of systems per the HPI and history, otherwise unremarkable. * Medical History: * Surgical History: A nterior cervical discetomy & fusion 05/12/2010Nasal surgury 03/16/2019 * Hospitalization/Major Diagno stic Procedure: b roken ankle 05/12/2023 * Family History: F ather: alive. M other: alive. There is no other family history of cancer, CF, diabetes, emphysema or heart disease. * Social History: M arital Status What is your marital status? m arried A lcohol Screening Do you ever drink alcoholic beverages? Y es Number of drinks per occasion: 3 Frequency? W holden kramer Have you ever smoked tobacco: f ann smoker Additional Findings: Tobacco Non-User E x-pipe smoker How old were you when you started smoking? 1 7 How old were you when you quit smoking? 3 9 How many cigarettes a day did you smoke? 1 1 to 20 Are you a : f wendyavery smoker S williams Smart Form Are you a: n ever smoker R ecreational drug use Have you ever used recreational drugs? N o D etails on consumption of certain products? Do you regularly consume products with aspartame; Equal or NutraSweet? N o Do you regularly consume products with artificial coloring??Yes Have you ever noticed worsening of your rash with these food items? N o E xercise What kind(s) of exercise do you perform regularly? c ardio,age-appropriate participation in physical activites How often do you perform this exercise? w holden A re any of the following personal care products containing fragrance, dye or preservatives used regularly? Shampoo: Y es Conditioner: Y es Soap: Y es Laundry Detergent: Y es Fabric Softener: N o Deodorant: Y es O ccupation Are you currenly employed? Y es Employment status? 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 number of years?15 Do you believe that your current or previous occupation has any bearing on your illness? N o Do you have any pending or planned legal action against your current or former employer which pertains to your medical illness? N o Do you anticipate that your evaluation will be used in any legal action against your current employer or former employer? N o Have you had any job with high exposure to fumes, chemicals, dust or other noxious substances? N o Are you currently a student? N o E nvironmental History Living environment: p rivate home,with pets Where is the home located? [place] Age of home: 3 0 How long have you lived there? 5 years or more How many people live in the home? 3 H ome description Basement: Y es Any water damage in basement? N o Smokers in the home? N o Smokers outside the home? N o Air Conditioning? Y es Central Air? Y es Forced air heating? Y es Gas or electric? g as Fireplace? Y es Used how often? w inter months only Wood burning stove? N o Do you vacuum the home? Y es Air purification systems? Y es Is it a HEPA (high-efficiency particulate air filter)? Y es Ionizer on air purification system? Y es Pillow and mattress dust-proof encasings? N o Do you use a humidifier? N o Do you own any pets? Y es What kind(s)? (click all that apply) c ats,dog Where do your pets sleep? a nywhere in the house Fabric softeners used? Y es Plants in the home? N o Is there carpeting in your bedroom? Y es Age of carpet? 0 Do you have ymnc-eu-oigm carpeting? Y es What is the age of your carpeting? 0 What is the age of your mattress (years)? 1 What material(s) are used to manufacture your bedding and pillow? s ynthetic,natural fiber (e.g. cotton) What is the age of your pillow (years)? 2 What material are your bedding items made of? s ynthetic,natural fiber (e.g. cotton) Do you sleep with quilts or blankets or a duvet? Y es What material? s ynthetic,natural fiber (e.g. cotton) How many cats? 1 How many dogs? 2 T obacco Control (Standard) Tobacco use: F ormer smoker * Medications: T akingLisinopril 5 MG Tablet 1 tab(s) orally once a day traZODone HCl 50 MG Tablet as directed orally Pravastatin Sodium 40 MG Tablet 1 tab(s) orally once a day Cetirizine HCl 10 MG Tablet 1 tab(s) orally once a day Fluticasone Propionate 50 MCG/ACT Suspension 1 spray(s) in each nostril twice a day NASAL WASHES N/A 1 QUART OF STERILIZED TAP WATER OR DISTILLED WATER, 1 TSP NACL, 1 PINCH OF BAKING SODA DIRECTED INTRANASALLY NEEDED , Notes to Pharmacist: *Please review for potential replacement for e-prescription and drug interaction check*Fluticasone Propionate 50 MCG/ACT Suspension 1 spray(s) in each nostril twice a day Azelastine HCl 137 MCG/SPRAY Solution 2 spray(s) intranasally 2 times a day Medication List reviewed and reconciled with the patientTaking Lisinopril 5 MG Tablet 1 tab(s) orally once a day Taking traZODone HCl 50 MG Tablet as directed orally Taking Pravastatin Sodium 40 MG Tablet 1 tab(s) orally once a day Taking Cetirizine HCl 10 MG Tablet 1 tab(s) orally once a day Taking Fluticasone Propionate 50 MCG/ACT Suspension 1 spray(s) in each nostril twice a day Taking NASAL WASHES N/A 1 QUART OF STERILIZED TAP WATER OR DISTILLED WATER, 1 TSP NACL, 1 PINCH OF BAKING SODA DIRECTED INTRANASALLY NEEDED , Notes to Pharmacist: *Please review for potential replacement for e-prescription and drug interaction check*Taking Fluticasone Propionate 50 MCG/ACT Suspension 1 spray(s) in each nostril twice a day Taking Azelastine HCl 137 MCG/SPRAY Solution 2 spray(s) intranasally 2 times a day Medication List reviewed and reconciled with the patient * Allergies: N .K.D.A.no[Allergies Verified] Objective: * Vitals: B P:163/106mm Hg, Repeat BP:155/103, HR:79/min, Pulse Oximetry:98%, Ht: 72 in, Wt: 234.4 lbs, BMI:31.79Index. * Examination: G eneral examination: General appearance: p leasant, well-developed, well-nourished, male, in no apparent distress, speaking in full sentences. HEENT: c onjunctiva are normal bilaterally, TMs without evidence of acute infection, turbinates 1+ swollen and pale inferiorly bilaterally, no polyps noted, no septal perforation, posterior oropharynx is clear without exudates. Oral cavity: n ormal, no lesions. Breasts : n ot performed. Heart: R RR, S1-S2, no murmurs, no rubs, no gallops. Lungs: c lear to auscultation in all lung orozco, no wheezes or crackles. Neurologic exam: u nremarkable. Back: n ormal. Genitalia: n ot performed. Assessment: * Assessment: 1. A llergic rhinitis due to pollen - J30.1 (Primary) 2 . A llergic rhinitis due to animal (cat) (dog) hair and dander - J30.81 3 . C hronic cough - R05.3? 4. U nspecified abdominal pain - R10.9 5 . E ssential (primary) hypertension - I10 Plan: * Treatment: 2. A llergic rhinitis due to animal (cat) (dog) hair and dander Notes: Follow allergen avoidance, meds and consider SCIT as an adjunctive treatment to current regimen 3. C hronic cough Notes: Christopher endorses almost daily cough, states this has been ongoing for many years. Feels it is related to drainage but also comes from my chest. He denies associated shortness of breath or wheezing. He denies clear triggers. He has never been prescribed an inhaler or hospitalized due to lower airway symptoms. He does endorse prior history of smoking, quit approximately 7 years ago, previously smoked 1 PPD x 20 years. - Christopher deferred spirometry at prior visits. - Considerations for cough include atopic disease vs GERD vs other. - Christopher feels his symptoms have improved. - Return in 6 months as above for further evaluation and management 4. U nspecified abdominal pain Notes: Christopher reports occasional abdominal pain and non-specific symptoms that he feels is related to dairy consumption. He denies facial swelling, skin changes or lower airway symptoms. He is not currently avoidant of dairy products. - Discussed thathistory is not consistent with an IgE-mediated hypersensitivity reaction, moreso intolerance. Skin testing is not indicated at this time. - Discussed journaling for triggers and startingan elimination diet. Consider consult with nutrition. - Consider consult with GI 5. E ssential (primary) hypertension Notes: BP elevated on PE. Recheck at follow-up and discuss with PMD. No symptoms of hypertensive crisis * Procedure Codes: G 8427 DOC MEDS VERIFIED W/PT OR RE * Preventive Medicine: Counseling: D iet a s tolerated, Journal dietary and environmental contacts. E xercise C ontinue activity as usual. E ducation: G ENERAL EDUCATION: Our staff spent an additional 30 minutes in direct contact with the patient educating them on their current diagnoses and proper treatment and prevention of symptoms and the proper use of medications. E ducation 2: A RC EDUCATION:, Our staff discussed the appropriate allergen avoidance measures and medication utilization including upper airway hygiene with nasal washes given the patient's clinical status and diagnoses, SCIT EDUCATION:, Discussed allergy immunotherapy including the relative risks, benefits and alternatives to this treatment as an adjunctive measure to current therapy, Allergy Immunotherapy: Risks: bleeding, infection, allergic reaction, anaphylaxis = severe allergic reaction that can cause ; Benefits: reduced need for medications, improved symptoms, disease modification. Alternatives: watch/wait, change medication regimen, improve allergy avoidance measures. P atient education material sent to portal? Y es C are goal follow up plan BMI management provided Y es Above Normal BMI Follow-up D ietary management education, guidance, and counseling B P Management: LIFESTYLE RECOMMENDATION: H ypertension education REFERRAL TO ALTERNATIVE / PRIMARY CARE PROVIDER: Lauro leach to general practitioner * Follow Up: 6 Months or sooner (Reason: Evaluation and Management) * Billing Information: * Visit Code: 06445 Office Visit, Est Pt., Level 4. Modifiers: 25 * Procedure Codes: G8427 DOC MEDS VERIFIED W/PT OR RE. * Electronically co-signed by Hayes Nuñez MD, FAAAAI on 11/04/2023 at 12:51 PM CDT Sign off status: Completed true * Provider: TEX Collado-C Date: 0 10/30/2023 Generated for Mahin salter/Dennis/eTransmitting on: 0 05/06/2024 01:57 AM CDT History and Physical Notes * HPI (History of Present Illness) Category Sub-Category Detail Notes Category Not es *Introduction I had the pleasure o f seeing Christopher Leahy, a 47-year-old male with past medical history significant for ARC, hypertension and hypercholesteremia, who returns today for follow-up evaluation. He is alone for today's visit. Christopher has been experiencing upper airway symptoms concerning for uncontrolled atopic disease. He feels his symptoms worsened over the Winter, however occur year-round. He has two dogs and one cat at home, does endorse increased upper airway symptoms when near his pets. Christopher takes daily trazodone, due to this we are unable to perform skin testing. He had aeroallergen ImmunoCaps drawn that showed positive results to weed and cat. Total IgE 64. He is now taking Zyrtec, also using azelastine and Flonase. Christopher returns with ongoing complaints of nasal drainage/congestion, which is causing sleep disturbances. Christopher also reports cough that has been ongoing for many years. He denies clear triggers. Feels it is caused by drainage, but at times states it comes from my chest. He has never been prescribed an inhaler, no history of hospitalizations due to lower airway symptoms. He does report smoking history, previously smoked 1 PPD for approximately 20 years, he quit smoking 7 years ago. Christopher deferred spirometry at prior visits. Christopher feels his cough is much more mild lately. Additionally, Christopher reports abdominal upset and not feeling right with dairy consumption. He denies associated systemic symptoms. Does not currently avoid dairy products. Today, he reports no fevers, chills, night sweats or other constitutional symptoms Examination Category Sub-Category Detail Notes Category Not es General examination HEENT: conjunctiva are normal bilaterally, TMs without evidence of acute infection, turbinates 1+ swollen and pale inferiorly bilaterally, no polyps noted, no septal perforation, posterior oropharynx is clear without exudates Heart: RRR, S1-S2, no murmu rs, no rubs, no gallops Lungs: clear to auscultatio n in all lung o[place], no wheezes or crackles General appearance: pleasant, well-devel oped, well-nourished, male, in no apparent distress, speaking in full sentences Neurologic exam: unremarkable Oral cavity: normal, no lesions Breasts : not performed Back: normal Genitalia: not performed
--- OUTSIDE RECORDS SUMMARY | 2024-05-06 01:57 | XMS_ITS | Data Portability ---
Author Organization [facility], Main Office Address [address] [place] [address] Care Team Providers Care Crate Icer Name Role Phone IVONNE VELAZQUEZ Primary Care Provider IVONNE VELAZQUEZ Referring Provider [phone] Assessment No assessment recorded. Plan of Treatment Reminders Order Date Submit Date Provider Last Modified By Organization Details Last Modified Time Details Appointments None recorded. Lab lipid panel, serum 2022 023 [email or web address] [facility] ([facility]), [address] [place], [address], 3 08:21:53 Referral None recorded. Procedures None recorded. Surgeries None recorded. Imaging home sleep study - *Please call pt to schedule* 2023 024 [email or web address] Not available 4 08:40:13 Medication Orders lisin[facility]ril 5 mg tablet 2023 024 [facility] [address], [place], [id number], 4 15:04:45 sildenafil 100 mg tablet 2023 024 [facility]708, [address], [place], [id number], 4 15:01:11 trazodone 50 mg tablet 2023 024 [facility]96705, [address], [place], [id number], 4 14:59:18 lisinopril 5 mg tablet 2023 024 [facility] #33361, [address], [place], [place], [id number], 4 12:30:06 trazodone 50 mg tablet 2023 024 [facility] #82024, [address], [place], [place], [id number], 4 12:28:37 cefdinir 300 mg capsule 2022 023 [email or web address] [facility] #15803, [address] [facility], [place], [place], [id number], 3 09:12:08 Medrol (Shan) 4 mg tablets in a dose pack 2022 023 [email or web address] [facility] #20136, [address] [facility], [place], [place], [id number], 4 12:12:15 Patient TargetsNo targets recorded. Patient Instructions Encounter Date Encounter Id Patient Instructions Last Modified By Organization Details Last Modified Time 06/30/2022 [id number] for now we will go with the antibiotic and steroid route and see what happens [email or web address] Not available 06/30/2022 11:21:12 10/25/2022 [id number] FU in 6 mo for labs, lipid, htn. [email or web address] Not available 10/25/2022 09:24:10 02/21/2023 [id number] learning about obesity [email or web address] Not available 02/21/2023 12:35:50 high blood pressure: care instructions [email or web address] Not available 02/21/2023 12:29:58 high cholesterol : care instructions [email or web address] Not available 02/21/2023 12:28:20 03/20/2023 [id number] learning about obesity Not available 03/20/2023 14:55:01 high blood pressure: care instructions [email or web address] Not available 03/20/2023 14:55:01 high cholesterol : care instructions [email or web address] Not available 03/20/2023 14:55:01 Reason for Referral None Reported. Results Created Date Observation Date Name Description Value Unit Range Abnormal Flag Note LastModifiedBy Organization Detail LastModifiedTime 06/23/1906/22/2022 CT, sinus es, w/o contr ast No observ ation record ed. [email or web address] [facility] [address], [place], [address], 06/29/2022 10:37:10 06/30/19 CT, sinus es, w/o contr ast No observ ation record ed. [email or web address] [facility] [address], [place], [address], 06/29/2022 10:43:01 10/08/19 23 10/07/2022 CT, abdom en + pelvi s, w/ contr ast No observ ation record ed. [email or web address] [facility] [address], [place], [address], 10/07/2022 12:42:51 Result Notes None recorded. Problems Name Problem SNOMED Code Status Onset Date Resolution Date Notes Provider Name and Address Organization Details Recorded Time Chronic sinusitis 16771495 Active 2022 Not Available [facility] 4 20:11:40 Deviated nasal septum 731968725 Active 2022 Not Available [facility] 4 20:11:40 Right lower quadrant pain 549173912 Active 2022 Not Available [facility] 4 20:11:40 Kidney stone 32326497 Active 2022 Not Available [facility] 4 20:11:41 Acute urinary tract infection 356349500 Active 2022 Not Available [facility] 4 20:11:40 Contact dermatitis 34355004 Active 2022 Not Available [facility] 4 20:11:40 Essential hypertensi on 66843304 Active 2022 Not Available [facility] 4 20:11:40 Upper respirator y infection 46778365 Active 2022 Not Available [facility] 4 20:11:40 Persistent insomnia 837778399 Active 2023 Not Available [facility] 4 20:11:40 Benign prostatic hyperplasi a without outflow obstructio n 503997677 Active 2023 Not Available [facility] 4 20:11:40 Obesity 941300658 Active 2023 Not Available [facility] 4 20:11:40 Sleep apnea 60674751 Active 2023 Not Available [facility] 4 20:11:41 Seasonal allergic rhinitis 520439476 Active 2023 Not Available [facility] 4 20:11:40 Hypertensi ve disorder 64049640 Active 2023 Not Available [facility] 4 20:11:40 Erectile dysfunctio n 947968877 Active 2023 Hermes Yates MD [address] [place] [address], [address] , [facility] 4 14:53:43 Pain of right ankle joint 1241627267273 9106 Active 2020 Not Available [facility] 4 20:11:40 Ankle joint effusion 717940078 Active 2020 Not Available [facility] 4 20:11:40 Family history of Cardiovasc ular disease 067495673 Active 2016 Not Available [facility] 4 20:11:40 Bronchitis 54618230 Active 2021 Not Available [facility] 4 20:11:40 Depressive disorder 02104887 Active 2020 Not Available [facility] 4 20:11:40 Obese 236042584 Active 2016 Not Available [facility] 4 20:11:40 Cough 62670367 Active 2021 Not Available [facility] 4 20:11:40 Hyperlipid emia 62614052 Active 2017 Not Available [facility] 4 20:11:40 Degenerati on of cervical interverte bral disc 12941943 Active 2016 Not Available [facility] 4 20:11:40 Snoring 36362153 Active 2016 Not Available [facility] 4 20:11:40 Fatigue 69979555 Active 2016 Not Available [facility] 4 20:11:41 Problem Notes None recorded. Procedures Surgical History Date Name Laterality Status Provider Name and Address Organization Details Recorded Time septodermoplasty completed Noemi Shaw SHIFTMAN [employer] [facility] [employer] [facility] 06/09/2022 10:00:43 reduction of nasal turbinate completed Noemi Shaw CMA [employer] [facility] 06/09/2022 10:03:21 Imaging Results Imaging Date Name Status LastModified by Organiz ation Details LastModified Time 06/22/2022 CT, sinuses, w/o contrast completed [email or web address] [facility] [address], [place], [address], 06/29/2022 10:37:10 06/29/2022 CT, sinuses, w/o contrast completed [email or web address] [facility] [address], [place], [address], 06/29/2022 10:43:01 10/07/2022 CT, abdomen + pelvis, w/ contrast completed [email or web address] [facility] [address], [place], [address], 10/07/2022 12:42:51 Procedure Notes None recorded. Medical Equipment None Reported. Allergies No known drug allergies Medications Name Sig Start Date Stop Date Status Note LastModified by Organization Details LastModified Time cyclobenzap rine 10 mg tablet Take 1 tablet 3 times a day by oral route as needed. active Not Available Not Available No t Available trazodone 50 mg tablet TAKE 1 TABLET BY MOUTH EVERY DAY AT BEDTIME active Not Available Not Available No t Available azithromyci n 250 mg tablet TAKE 2 TABLETS (500 MG) BY ORAL ROUTE ONCE DAILY FOR 1 DAY THEN 1 TABLET (250 MG) BY ORAL ROUTE ONCE DAILY FOR 4 DAYS active Not Available Not Available No t Available pravastatin 40 mg tablet Take 1 tablet every day by oral route. active Not Available Not Available No t Available benzonatate 200 mg capsule TAKE 1 CAPSULE BY MOUTH THREE TIMES DAILY NEEDED FOR COUGH 02/03 completed Not Available Not Available Not Available prednisone 20 mg tablet 2 tabs po daily for 3 days, then 1 tab po daily for 4 days. active Not Available Not Available No t Available simvastatin 10 mg tablet TK 1 T PO Q NIGHT active Not Available Not Available No t Available ciprofloxac in 500 mg tablet TAKE 1 TABLET BY MOUTH EVERY 12 HOURS FOR 5 DAYS 10/25 completed Not Available Not Available Not Available sulfamethox azole 800 mg-trimetho prim 160 mg tablet TK 1 T PO Q 12 H FOR 10 DAYS active Not Available Not Available No t Available sildenafil 100 mg tablet TAKE 1 TABLET BY MOUTH NEEDED DIRECTED active Not Available Not Available No t Available Kenalog 40 mg/mL suspension for injection 1.5 ml IM x 1 dose 09/24 completed Not Available Not Available Not Available famotidine 20 mg tablet 01/18 completed Not Available Not Available Not Available tamsulosin 0.4 mg capsule TAKE 1 CAPSULE BY MOUTH EVERY DAY, 30 MINUTES AFTER SAME MEAL EACH DAY 2022 active Not Available Not Available Not Avai lable dicyclomine 20 mg tablet 01/18 completed Not Available Not Available Not Available benzonatate 100 mg capsule TAKE 1 TO 2 CAPSULES BY MOUTH THREE TIMES DAILY NEEDED 04/22 completed Not Available Not Available Not Available hydrocodone 7.5 mg-acetamin ophen 325 mg tablet 09/25 completed Not Available Not Available Not Available simvastatin 20 mg tablet Take 1 tablet every day by oral route. active Not Available Not Available No t Available pravastatin 20 mg tablet TAKE 1 TABLET BY MOUTH EVERY DAY 08/27 completed Not Available Not Available Not Available lisinopril 5 mg tablet Take 1 tablet every day by oral route as directed for 90 days. 2023 active Not Available Not Available Not Avai lable methylpredn isolone 4 mg tablets in a dose pack FOLLOW PACKAGE DIRECTION S 02/21 completed Not Available Not Available Not Available albuterol sulfate HFA 90 mcg/actuati on aerosol inhaler INHALE 2 PUFFS BY MOUTH FOUR TIMES DAILY NEEDED FOR COUGH 04/22 completed Not Available Not Available Not Available cefdinir 300 mg capsule TAKE 1 CAPSULE BY MOUTH EVERY 12 HOURS 10/25 completed Not Available Not Available Not Available fluticasone propionate 50 mcg/actuati on nasal spray,suspe nsion 09/25 completed Not Available Not Available Not Available amoxicillin 875 mg-potassiu m clavulanate 125 mg tablet 03/29 completed Not Available Not Available Not Available Chantix Starting Month Box 0.5 mg (11)-1 mg (42) tablets in dose pack 01/18 completed Not Available Not Available Not Available Vitals Date Recorded Body height Body mass index (BMI) Body weight Body temperature Provider Name and Address Organization Details Last Updated DateTime 06/09/2022 182.88 cm 32 kg/m2 658269.8 g 97.6 [degF] Noemi Shaw [facility] [employer] [facility] 06/09/2022 16:09:06 Date Recorded Body height Body mass index (BMI) Body weight Body temperature Provider Name and Address Organization Details Last Updated DateTime 06/30/2022 182.88 cm 31.7 kg/m2 676450.61 g 97.6 [degF] Noemi Shaw [facility] [employer] [facility] 06/30/2022 10:59:44 Date Recorded Body height Body mass index (BMI) Body weight Body temperature Heart rate Respiratory rate Oxygen saturation Oxygen saturation in Arterial blood by Pulse oximetry Systolic blood pressure Diastolic blood pressure Provider Name and Address Organization Details Last Updated DateTime 182.88 cm 32 kg/m2 132530. 15 g 98.2 [degF] 72 /min 20 /min 98 % 98 % 150 mm[Hg] 96 mm[Hg] Marcin Garcia [employer] [facility] [employer] [facility] 3 09:02:35 Date Recorded Body height Body mass index (BMI) Body weight Body temperature Heart rate Respiratory rate Oxygen saturation Oxygen saturation in Arterial blood by Pulse oximetry Systolic blood pressure Diastolic blood pressure Provider Name and Address Organization Details Last Updated DateTime 4 182.88 cm 32.1 kg/m2 411195. 39 g 98.2 [degF] 80 /min 16 /min 98 % 98 % 140 mm[Hg] 88 mm[Hg] Marcin Garcia [place] [employer] [facility] 4 12:18:58 Date Recorded Body height Body mass index (BMI) Body weight Body temperature Respiratory rate Oxygen saturation Oxygen saturation in Arterial blood by Pulse oximetry Provider Name and Address Organization Details Last Updated DateTime 4 182.88 cm 32.7 kg/m2 841721. 11 g 98.4 [degF] 16 /min 98 % 98 % Marcin Garcia [place] [employer] [facility] 4 14:44:04 Date Recorded Heart rate Systolic blood pressure Diastolic blood pressure Provider Name and Address Organization Details Last Updated DateTime 03/20/2023 84 /min 142 mm[Hg] 80 mm[Hg] Hermes Yates MD [address] [place] [address], [address], [place] [employer] [facility] 03/20/2023 15:06:59 Social History Question Answer Notes LastModified by Organizat ion Details LastModified Time Tobacco Smoking Status Never Smoker Indu Dixon mae, [place] [employer] [facility] [employer] 06/09/2022 16:03:46 Do You Have An Advance Directive? No [id number] Information not available 04/13/2022 What Is Your Level Of Alcohol Consumption? Occasional [id number] Information not available 04/13/2022 What Is Your Level Of Caffeine Consumption? Occasional [id number] Information not available 04/13/2022 How Much Tobacco Do You Chew? None [id number] Information not available 04/13/2022 What Is Your Code Status? Full Code [email or web address] Information not available 06/09/2022 In The 14 Days Before Symptom Onset, Have You Had Close Contact With A Laboratory-confi rmed COVID-19 While That Case Was Ill? No Information not available 06/09/2022 In The 14 Days Before Symptom Onset, Have You Had Close Contact With A Person Who Is Under Investigation For COVID-19 While That Person Was Ill? No Information not available 06/09/2022 What Type Of Diet Are You Following? REGULAR [id number] Information not available 04/13/2022 Which Illicit Or Recreational Drugs Have You Used? None Information not available 06/09/2022 Do You Or Have You Ever Used E-cigarettes Or Vape? Never Used Electronic Cigarettes [email or web address] Information not available 06/09/2022 What Is The Highest Grade Or Level Of School You Have Completed Or The Highest Degree You Have Received? 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 No Information not available 06/09/2022 Do You Use Insect Repellent Routinely? Yes [email or web address] Information not available 06/09/2022 Where Do You Live? [facility] [email or web address] Information not available 06/09/2022 Do You Have A Medical Power Of Internal Control Consultant? No [email or web address] Information not available 06/09/2022 Do You Have Any Pets? Yes Information not available 06/09/2022 What Is Your Relationship Status? [id number] Information not available 04/13/2022 Do You Have Smoke And Carbon Monoxide Detectors In Your Home? Yes Information not available 06/09/2022 Are You Passively Exposed To Smoke? No Information not available 06/09/2022 Do You Or Have You Ever Used Smokeless Tobacco? Never Used Smokeless Tobacco [id number] Information not available 04/13/2022 Are There Any Smokers In Your House? No Information not available 06/09/2022 Do You Feel Stressed (tense, Restless, Nervous, Or Anxious, Or Unable To Sleep At Night)? [id number] [email or web address] Information not available 06/09/2022 Do You Use Any Illicit Or Recreational Drugs? No [email or web address] Information not available 06/09/2022 Do You Use Sunscreen Routinely? Yes [email or web address] Information not available 06/09/2022 Have You Recently Traveled Abroad? No Information not available 06/09/2022 Are You Currently In School? No Information not available 06/09/2022 Do You Have Any Dietary Restrictions? No [email or web address] Information not available 06/09/2022 Sex: Male Functional Status Question Answer Note LastModified by Organizat ion Details LastModified Time What is your exercise level? Occasional [id number] Information not available 04/13/2022 Mental Status None recorded. Family History Relationship Description Onset Age of this Age Resolved Age Notes LastModified by Organization Details LastModified Time Unspecified Relation Hypertensive disorder [id number] Not available 04/13/2022 00:43:18 Notes:Heart issues ( most soto ve ) Medical History Condition Response MRSA N ALLERGIES/HAYFEVER N BACK INJECTIONS N LUNG DISEASE/DISORDER N ESRD N HISTORY OF DRUG ABUSE N INSOMNIA N RADIATION / CHEMOTHERAPY N COPD N HIGH CHOLESTEROL / HYPERLIPIDEMIA N HYPERTHYROIDISM N PVD N BLOOD DISEASES N EAR OR HEARING PROBLEMS N HYPOTHYROIDISM N SHINGLES N DEPRESSION (INCLUDING POST ) N BACK / NECK PROBLEMS N HAVE YOU BEEN HOSPITALIZED OR SEEN IN [place] [facility] ER IN THE PAST YEAR ? N FAILED BACK SYNDROME N STROKE/TIA N POLYCYSTIC OVARIES N OBESITY N ANEURYSM N HISTORY WITH COMPLICATIONS WITH ANESTHES IA ? N Do you have Advance directive? N USE OF BLOOD THINNERS N NO SIGNIFICANT PAST MEDICAL HISTORY N DIABETES, TYPE N VON WILLIBRAND'S DISEASE N PARATHYROID DISEASE N ENT Y SEASONAL ALLERGIES N HEARTBURN / REFLUX N POST LAMINECTOMY SYNDROME N HEPATITIS / LIVER DISEASE N SLEEP DISORDER N ARTERIAL INSUFFICIENCY N SEIZURES/EPILEPSY N HEADACHES/MIGRAINES N CHF N PACEMAKER N DIZZINESS N HEART DISEASE/HEART PROBLEMS N AIDS/HIV N NEUROPSYCHOLOGICAL N HYPERTENSION N CANCER: SPECIFY N TOURETTE'S N BLOOD TRANSFUSION N ANEMIA/BLOOD DISORDER N ANESTHESIA COMPLICATIONS N CHRONIC EAR INFECTIONS N ATRIAL FIBRILLATION N AUTOIMMUNE DISEASE N TUBERCULOSIS N Immunizations Vaccine Type Date Status Note Provider Nam e and Address Organization Details Recorded Time Influenza, split virus, quadrivalent, PF 3 completed Ivonne Evans RN [facility], [place] - [facility] [employer] 10/25/2022 09:38:13 SARS-COV-2 (COVID-19) vaccine, UNSPECIFIED 1 completed Not Available [facility] 02/23/2023 20:11:41 SARS-COV-2 (COVID-19) vaccine, UNSPECIFIED 1 completed Not Available [facility] 02/23/2023 20:11:41 Influenza, split virus, quadrivalent, preservative 8 completed Not Available [facility] 02/23/2023 20:11:41 Influenza, split virus, quadrivalent, preservative 7 completed Not Available [facility] 02/23/2023 20:11:41 Tdap 7 completed Not Available [facility] 02/23/2023 20:11:41 Influenza, split virus, quadrivalent, PF 2 completed Not Available [facility] 02/23/2023 20:11:41 Influenza, split virus, quadrivalent, PF 1 completed Not Available [facility] 02/23/2023 20:11:41 Past Encounters Encounter ID Performer Location Encounter Start Date Encounter Closed Date Diagnosis/Indication Diagnosis SNOMED-CT Code Diagnosis ICD10 Code Diagnosis Note [id number] [facility] [address] [place] [address] 08/27/2020 00:00:00 08/27/2020 08:50:[id number] [facility] Pod[facility] [place] [address] [facility] [address] [place] [address] 09/10/2020 00:00:00 09/11/2020 09:14:37 [id number] [facility] [address] [place] [address] 1 12/29/2020 00:00:00 12/29/2020 14:09:19 [id number] [facility] [address] [place] [address] 04/16/2021 00:00:00 04/16/2021 09:28:[id number] [address] 12/01/2021 00:00:00 12/01/2021 18:12:[id number] [address] 02/03/2022 00:00:00 02/03/2022 08:44:33 [id number] Ivonne Velazquez NP [facility] [address] [place] [address] 04/22/2022 08:14:54 04/22/2022 08:51:13 Depressive disorder 50863574 F32.9 stable. Obese 527438833 E66.9 Stable. Hyperlipidemia 52930680 E78.5 Pravastati n 40 mg po nightly. Fatigue 31194306 R53.83 some days doesn't feel rested. Adult heal th examination 404213195 Z00.00 Encouraged well balanced meals, active lifestyle, and routine vision and dental appts. Screening for malignant neoplasm of colon 770174249 Z12.11 Colonoscop y referral. Anemia screening 1470863 07 Z13.0 Diabetes m ellitus screening 826183856 Z13.1 Thyroid di sorder screening 335811507 Z13.29 Snoring 44997456 R06.83 Will refer back to Bertha for further eval. Sinus surgery in 2020. [id number] Cosmo Stone MD [facility] E[facility] [place] [address] [place] [address] 06/09/2022 16:02:54 06/09/2022 16:21:18 Chronic sinusitis 22043551 J32.[id number] [facility] [place] [address] [place] [address] 06/30/2022 10:55:18 06/30/2022 11:36:30 Deviated nasal septum 249442407 J34.2 Chronic sinusitis 128929 00 J32.9 [id number] Ivonne Velazquez NP [facility] [address] [place] [address] 10/25/2022 08:52:15 10/25/2022 09:41:19 Contact dermatitis 49250391 L25.9 Cortizone cream topically prn. Hyperlipidemia 84516295 E78.5 Pravastati n 40 mg po nightly. Essential hypertension 36192328 I10 Reduce ramen intake.Main id sodium.Lesa ck home bp for 2 weeks, then call with readings.I f still > 140/90, will start on lisinopril 10 mg po daily. Administra tion of influenza vaccine 14646248 Z23 10/25/22 given. [id number] Hermes Yates MD [address] [address] 02/21/2023 12:11:19 02/21/2023 12:39:47 Persistent insomnia 219421245 G47.09 Hyperlipidemia 89627849 E78.5 Benign pro static hyperplasia without outflow obstruction 096629222 N40.0 Obesity 835503200 E66.9 Sleep apnea 33701901 G47 .30 Hypertensive disorder 38 783853 I10 [id number] Hermes Yates MD [address] [address] 03/20/2023 14:33:41 03/20/2023 15:12:27 Persistent insomnia 568045162 G47.09 Sleep apnea 20050099 G47 .30 Hyperlipidemia 56949845 E78.5 Hypertensive disorder 38 090304 I10 Benign pro static hyperplasia without outflow obstruction 832818671 N40.0 Obesity 203854925 E66.9 Erectile dysfunction 860 957086 F52.21 Health Concerns Section Related Observation LastModified by Organization Detai ls LastModified Time None Recorded Concern Status LastModified by Organization Details LastModified Time None Recorded Advance Directives Directive N: Payers Encounter Date Sequence Insurance Name Policy Number Policy [place] Covered Member ID Eaton Member ID Guarantor Name 06/09/2022 1 [place] [id number] Christopher Emerson Trepka [id number] Christopher N Trepka 06/30/2022 1 [place] [id number] Christopher Emerson Trepka [id number] Christopher N Trepka 10/25/2022 1 [place] [id number] Christopher Emerson Trepka [id number] Christopher N Trepka 02/21/2023 1 [place] [id number] Christopher Emerson Trepka [id number] Christopher N Trepka 03/20/2023 1 [place] [id number] Christopher Powers [id number] Christopher Powers Notes Date Note Type Note Provider Name and Address Organization Details Recorded Time 06/09/2022 text/html this patient had sinus surgery in 2019. He has been having sinus infections again and reports that he no longer has sleep apnea but his snoring has returned. He has been on [id number] medications for allergies. He has been on antibiotics since his surgery as well Cosmo Stone MD [address], [place], [address], [employer] [facility] 06/09/2022 16:19:19 06/30/2022 text/html The CT demonstrates septal deviation and right maxillary sinusitis Cosmo Stone MD [address], [place], [address], [employer] [facility] 06/30/2022 11:21:34 10/25/2022 text/html Here for check up.FU from ER after kidney stone. Did pass stone. No more pain. Drinking more water.Has rash on arms, but was not tamsulosin related.Rash linear lesions and itchy. Ivonne Velazquez NP [address], [place], [address], [employer] [facility] 10/25/2022 09:24:33 02/21/2023 text/html ACV: C/o not able to sleep at nights for last couple years. Its more pronounced during the winter time. Pt has tried few otc meds for it, but its not helping him. Denies any mood problems/mood swings. Snoring and pauses at night ++. Pt never had any sleep study in the past. Pt is not checking his BP at home and FH of HTN ++. Pt declined for any repeat labs until 05/06 with his annual labs. Hermes Yates MD [address], [place], [address], [employer] [facility] 02/21/2023 12:37:41 03/20/2023 text/html Pt is here for f /u on his new med and chronic conditions. Doing overall much better compared to last visit. Pt says since starting Trazodone, he has now ED. No issues before it. No other concern. C/o not able to sleep at nights for last couple years. Its more pronounced during the winter time. Pt has tried few otc meds for it, but its not helping him. Denies any mood problems/mood swings. Snoring and pauses at night ++. Pt never had any sleep study in the past. Pt is not checking his BP at home and FH of HTN ++. Pt declined for any repeat labs until 05/06 with his annual labs. Hermes Yates MD [address] [facility], [facility] [address], [place], [address], [facility] [employer] 03/20/2023 15:08:35
--- OUTSIDE RECORDS SUMMARY | 2024-05-06 01:57 | XMS_ITS ---
Author Organization [facility] Address [address] [place] [address] Care Team Providers Care Bacon Skin Lifter Name Role Phone Ivonne Valle Primary Care Provider Alisha Tirado Unavailable [phone] [facility]M[employer], Provider Unavailable Unavailab le REASON FOR VISIT [facility] To [facility] Conversion Encounter Medications Medication SIG (Take, Route, Frequency, Duration) Notes Start Date End Date Status traZODone HCl 50 MG as directed orally Active Fluticasone Propionate 50 MCG/ACT 1 spray(s) in each nostril twice a day for 30 days 06/05/2023 Active Azelastine HCl 137 MCG/SPRAY 2 spray(s) intranasally 2 times a day for 30 days 06/05/2023 Active NASAL WASHES N/A DIRECTED INTRANASALLY NEEDED for 30 *Please review for potential replacement for e-prescription and drug interaction check* 06/05/2023 Active Fluticasone Propionate 50 MCG/ACT 1 spray(s) in each nostril twice a day for 30 days Active Lisinopril 5 MG 1 tab(s) orally once a day Active Pravastatin Sodium 40 MG 1 tab(s) orally once a day Active Cetirizine HCl 10 MG 1 tab(s) orally once a day for 30 days 06/05/2023 Active Encounters Encounter Location Date Provider Diagnosis [facility] [address] [place] [address] 07/29/2023 Provider [facility]Migration Allergic rhinitis due to pollen J30.1 and Essential (primary) hypertension I10 Assessments Encounter Date Diagnosis (ICD Code) Assessment Notes Treatment Notes Treatment Clinical Notes Section Notes 07/29/2023 Allergic rhinitis due to pollen (ICD-10 - J30.1) 07/29/2023 Essential (primary) hypertension (ICD-10 - I10) Plan Of Treatment Medication Medication Name Sig Start Date Stop Date Notes Fluticasone Propionate 50 MCG/ACT 1 spray(s) in each nostril twice a day for 30 days 06/05/2023 Azelastine HCl 137 MCG/SPRAY 2 spray(s) intranasally 2 times a day for 30 days 06/05/2023 NASAL WASHES N/A DIRECTED INTRANASALLY NEEDED for 30 06/05/2023 *Please review for potential replacement for e-prescription and drug interaction check* Fluticasone Propionate 50 MCG/ACT 1 spray(s) in each nostril twice a day for 30 days Lisinopril 5 MG 1 tab(s) orally once a day Cetirizine HCl 10 MG 1 tab(s) orally onc e a day for 30 days 06/05/2023 Progress Notes * Christopher LEAHYDOB:1975 ( 48 yo M)Acc No.[id number]:07/29/2023 Patient: Jomar DEEPA Christopher Provider: Murtaza Mckeon :1975 A ge:47 Y S ex:Male Date:07/29/2023 Address:[address] [place], [place] [id number] Pcp:ANDREA Juarez Subjective: * Chief Complaints: * [facility] Conversion Encounter. * Medical History: * Medications: T aking traZODone HCl 50 MG Tablet as directed orally , Taking Pravastatin Sodium 40 MG Tablet 1 tab(s) orally once a day Objective: * Vitals: Assessment: * Assessment: 1. A llergic rhinitis due to pollen - J30.1 2 . E ssential (primary) hypertension - I10 Plan: * Treatment: 2. E ssential (primary) hypertension Continue Lisinopril Tablet, 5 MG, 1 tab(s), orally, once a day. * Billing Information: * Visit Code: * Procedure Codes: * Electronic signature of Lucinda Zhang on 05/06/2024 at 01:57 AM CDT Sign off status: Pending * Provider: Murtaza saldana Migration Date: 0 07/29/2023 Generated for Mahin salter/Dennis/Dicskon on: 0 05/06/2024 01:57 AM CDT
--- OUTSIDE RECORDS SUMMARY | 2024-05-06 01:57 | XMS_ITS | Clinical Summary ---
Author Organization [facility] Address [address] [place] [address] Care Team Providers Care Silo Painter Name Role Phone Unavailable Primary Care Provider Unavailabl e Social History Tobacco Use Types Packs/Day Years Used Date Smoking Tobacco: Never Assessed Sex and Gender Information Value Date Recorded Sex Assigned at Not on file Legal Sex Male 7:38 PM CDT Gender Identity Not on file Sexual Orientation Not on file Last Filed Vital Signs Vital Sign Reading Time Taken Comments Blood Pressure 138/76 05/25/2016 8:50 AM CDT Pulse 67 05/25/2016 8:50 AM CDT Temperature - - Respiratory Rate - - Oxygen Saturation - - Inhaled Oxygen Concentration - - Weight 103 kg (227 lb) 05/25/2016 8:50 AM CDT Height 185.4 cm (6' 1 ) 05/25/2016 8:50 AM CDT Body Mass Index 29.95 05/25/2016 8:50 AM CDT Plan of Treatment Health Maintenance Due Date Last Done Comments Colorectal Cancer Screening Colonoscopy (10 Years) 1975 Annual Physical 11/28/1978 Hepatitis C 11/28/1993 DTaP, Tdap and Td Vaccines ( 1 - Tdap) 11/28/1994 Hepatitis B Vaccines (1 of 3 - 19+ 3-dose series) 11/28/1994 COVID-19 Vaccine (2023-2 5 season) 2023 Influenza Adult (#1) 2023 Meningococcal B Vaccine Aged Out No l onger eligible based on patient's age to complete this topic Meningococcal Vaccine Aged Out No micaela edward eligible based on patient's age to complete this topic Pneumococcal Vaccine: Pediat rics (0 to 5 Years) and At-Risk Patients (6 to 64 Years) Aged Out No longer eligible b ased on patient's age to complete this topic RSV Immunizations Under 20 Months Aged Out No longer eligible based on patient's age to complete this topic
--- OUTSIDE RECORDS SUMMARY | 2024-05-06 01:57 | XMS_ITS | Clinical Summary ---
Author Organization [facility] Address [address] [place] [address] Care Team Providers Care Bat Boy/Girl Name Role Phone Ivonne Kunz WEB SYSTEMS DEVELOPER Primary Care Provider + Allergies No known active allergies Medications rosuvastatin (CRESTOR) 10 mg tabletIndicatio ns:hyperlipidem ia Take 1 tablet (10 mg total) by mouth nightly Active lisinopriL (PRINIVIL,ZESTR IL) 5 mg tabletIndicatio ns:hypertension Take 1 tablet (5 mg total) by mouth nightly Active amitriptyline (ELAVIL) 10 mg tabletIndicatio ns:Insomnia,anx iety Take 1 tablet (10 mg total) by mouth nightly Active fluticasone propionate (FLONASE) 50 mcg/actuation nasal sprayIndication s:Chronic Non-Allergic Rhinitis Administer 1 spray into each nostril nightly Active oxyCODONE (ROXICODONE) 5 mg immediate release tabletIndicatio ns:Pain Take 1 tablet (5 mg total) by mouth every 6 (six) hours as needed for pain 28 tablet 4 Active senna-docusate (PERICOLACE) 8.6-50 mg Take 1 tablet by mouth 2 (two) times a day as needed for constipation 30 tablet 4 Active ketorolac (TORADOL) 10 mg tablet Take 1 tablet (10 mg total) by mouth every 6 (six) hours as needed for pain 12 tablet 4 Active Active Problems Problem Noted Date Diagnosed Date Biceps tendinitis, right 01/09/2024 Traumatic complete tear of right rotator cuff Right shoulder pain 11/27/2023 Partial tear of subscapulari s tendon, right, initial encounter 11/27/2023 Encounters Date Type Department Care Team Description 04/15/2024 3:30 PM COMMERCIAL SALES CONSULTANT Office Visit [facility] Orthopaedic Surgery [address] [place] [address] [address] [place] [address] [place] [address] Noemi Winn MD S/P right rotator cuff repair (Primary Dx); Traumatic complete tear of right rotator cuff, sequela 02/22/2024 12:00 PM COMMERCIAL SALES CONSULTANT Office Visit [facility] Orthopaedic Surgery [address] [place] [address] [place] [address] [place] [address] Noemi Winn MD Traumatic complete tear of right rotator cuff, sequela (Primary Dx); S/P right rotator cuff repair 02/19/2024 Telephone [facility] Orthopaedic Surgery [address] [place] [address] [address] [place] [address] [place] [address] Noemi Winn MD from Last 3 Months Surgical History Surgery Date Site/Laterality Comments CERVICAL DISC SURGERY 02/13/2010 - 02/12/2011 Medical History Medical History Date Comments HTN (hypertension) HLD (hyperlipidemia) Family History Medical History Relation Name Comments Heart disease Paternal Grandmother Anesthesia problems Neg Hx Relation Name Status Comments Paternal Grandmother Social History Tobacco Use Types Packs/Day Years Used Date Smoking Tobacco: Former Cigarettes Q uit: 2016 Smokeless Tobacco: Never Tobacco Cessation:Counseling Given: Not Answered AUDIT-C Answer Date Recorded Q1: How often do you have a drink containing alc ohol? 2-3 times a week 12/27/2023 Q2: How many drinks containi ng alcohol do you have on a typical day when you are drinking? 1 or 2 12/27/2023 Q3: How often do you have si x or more drinks on one occasion? Never 12/27/2023 Personal Safety Answer Date Recorded Have you ever been in or are you currently in a harmful physical or emotional relationship or is someone making you feel afraid or unsafe? Denies 01/09/2024 Sex and Gender Information Value Date Recorded Sex Assigned at Not on file Legal Sex Male 8:10 PM COMMERCIAL SALES CONSULTANT Gender Identity Not on file Sexual Orientation Not on file Obstetrics History Last Filed Vital Signs Vital Sign Reading Time Taken Comments Blood Pressure 137/84 01/09/2024 2:58 PM COMMERCIAL SALES CONSULTANT Pulse 79 01/09/2024 3:01 PM COMMERCIAL SALES CONSULTANT Temperature 36 C (96.8 F) 01/09/2024 1:52 PM COMMERCIAL SALES CONSULTANT Respiratory Rate 11 01/09/2024 3:01 PM COMMERCIAL SALES CONSULTANT Oxygen Saturation 94% 01/09/2024 3:01 PM COMMERCIAL SALES CONSULTANT Inhaled Oxygen Concentration - - Weight 103.4 kg (228 lb) 01/09/2024 8:00 AM COMMERCIAL SALES CONSULTANT Height 182.9 cm (6') 01/09/2024 8:00 AM COMMERCIAL SALES CONSULTANT Body Mass Index 30.92 01/09/2024 8:00 AM COMMERCIAL SALES CONSULTANT Plan of Treatment Health Maintenance Due Date Last Done Comments Colon Cancer Screening-Colonoscopy 1975 Depression Screening 1975 Hepatitis C Screening 1975 Hepatitis B Screening 11/28/1993 Regular Well Visit/Exam 18-64 11/28/1993 Covid-19 Vaccine ( - season) 2023 06/09/2020, 05/19/2020 DTaP/Tdap/Td Vaccine (2 - Td or Tdap) 01/18/2027 01/18/2017 Influenza Vaccine Completed 11/14/2023, , 02/03/2022, Additional history exists Pneumococcal vaccine <65 Aged Out No longer eligible based on patient's age to complete this topic Medical Devices Implanted Type Area Etl Consultant Device Identifier Shelf Expiration Date Model / Serial / Lot [employer] Suture [place] Triple Loaded Knotless Fibertak 2.6mm Ar-3633sp - [id number] Implanted:Qty: 1 on 01/09/2024 by Noemi Winn MD at [facility] [place] Right: Shoulder [employer] 07/13/2028 AR-3633SP / / [id number] [employer] Fiberloop 3.2mm Drill Pin Needle Shoehorn Cannula Kit Suture Ar-2290 - [id number] Implanted:Qty: 1 on 01/09/2024 by Noemi Winn MD at [facility] [place] Right: Shoulder [employer] 11/13/2027 AR-2290 / / [employer] Suture [place] Full Thread Knotless Self Punching Fibertak Speedbridge Biocomposite [id number] - [id number] Implanted:Qty: 1 on 01/09/2024 by Noemi Winn MD at [facility] Right: Shoulder [employer] 09/13/2027 AR-2600FSB -2 / / [id number] Insurance ANTHEM ACCESS ANTHEM ACCESS Care Teams Bat Boy/Girl Relationship Specialty Start Date End Date Ivonne Kunz NP PCP - General Nurse Practitioner 10/25/23
--- OUTSIDE RECORDS SUMMARY | 2024-05-06 01:57 | XMS_ITS | Referral Summary ---
Author Organization [facility] Address [address] [place] [address] Care Team Providers Care Machine Learning Intern Name Role Phone Ivonne Kunz NP Primary Care Provider + Encounters Date Type Department Care Team Description 04/15/2024 3:30 PM GAS REVERSER Office Visit [facility] Orthopaedic Surgery [address] [place] [address] [address] [place] [phone] Noemi Winn MD S/P right rotator cuff repair (Primary Dx); Traumatic complete tear of right rotator cuff, sequela 02/22/2024 12:00 PM GAS REVERSER Office Visit [address]th [place] [phone] Noemi Winn MD Traumatic complete tear of right rotator cuff, sequela (Primary Dx); S/P right rotator cuff repair 02/19/[address] [place] [address] [place] [phone] Noemi Winn MD from Last 3 Months Allergies No known active allergies Medications rosuvastatin [...] subscapulari s tendon, right, initial encounter 11/27/2023 Social History Tobacco Use Types Packs/Day Years [...] on file Legal Sex Male 8:10 PM GAS REVERSER Gender Identity Not on file Sexual Orientation Not on file Last Filed Vital Signs Vital Sign Reading Time Taken Comments Blood Pressure 137/84 01/09/2024 2:58 PM GAS REVERSER Pulse 79 01/09/2024 3:01 PM GAS REVERSER Temperature 36 C (96.8 F) 01/09/2024 1:52 PM GAS REVERSER Respiratory Rate 11 01/09/2024 3:01 PM GAS REVERSER Oxygen Saturation 94% 01/09/2024 3:01 PM GAS REVERSER Inhaled Oxygen Concentration - - Weight 103.4 kg (228 lb) 01/09/2024 8:00 AM GAS REVERSER Height 182.9 cm (6') 01/09/2024 8:00 AM GAS REVERSER Body Mass Index 30.92 01/09/2024 8:00 AM GAS REVERSER Plan of Treatment Not on file Medical Devices Implanted Type Area Survey Coordinator Device Identifier Shelf Expiration Date Model / Serial / Lot [employer] Suture [place] Triple Loaded Knotless Fibertak 2.6mm Ar-[id number] - [id number] Implanted:Qty: 1 on 01/09/2024 by Noemi Winn MD at [facility] [place] Right: Shoulder [employer] 07/13/2028 AR-3633SP / / [id number] [employer] Fiberloop 3.2mm Drill Pin Needle Shoehorn Cannula Kit Suture Ar-2290 - [id number] Implanted:Qty: 1 on 01/09/2024 by Noemi Winn MD at [facility] Right: Shoulder [employer] 11/13/2027 AR-2290 / / [employer] Suture [place] Full Thread Knotless Self Punching Fibertak Speedbridge Biocomposite [id number] - [id number] Implanted:Qty: 1 on 01/09/2024 by Noemi Winn MD at [facility] Right: Shoulder [employer] 09/13/2027 AR-[id number] -2 / / [id number] Insurance [facility] ACCESS ANTH ACCESS Care Teams Machine Learning Intern Relationship Specialty Start Date End Date Ivonne Kunz NP PCP - General Nurse Practitioner 10/25/23
--- OUTSIDE RECORDS SUMMARY | 2024-05-06 01:58 | XMS_ITS | Patient Health Record ---
Author Organization [facility] Address [address] [place] [address] Care Team Providers Care Police Manager Name Role Phone Joaquina Ivonne MENDEZ Primary Care Provider Rin vailabettye Sherry Blantona Unavailable [phone] [employer], Provider Unavailable Unavailab le Allergies No Known Allergies Results Component Value Reference Range Notes CAT DANDER COMPONENT PANEL Reviewed date:05/15/2023 07:36:02 AM Interpretation:Normal Performing Lab:[facility], [address] [place], [address] Lissette Fischer MD Notes/Report: Fel d 1 (e94) IgE <0.10 <0.10 kU/L Fel d 2 (e220) IgE <0.10 <0.10 kU/L Fel d 4 (e228) IgE <0.10 <0.10 kU/L Fel d 7 (e231) IgE <0.10 <0.10 kU/L Component testing for samples with positive extract results may help to rule out cross-reactivity and confirm that allergy is present. The more components a patient is sensitized to, the higher the likelihood of a reaction when exposed to cats. INTERPRETATION Reviewed date:05/15/2023 07:35:39 AM Interpretation:Interpretation Performing Lab:[facility], [address] [place], [address] Lissette Fischer MD Notes/Report: INTERPRETATION Specific Level of Allergen IGE Class kU/L Specific IGE Antibody ----- --------- 0 <0.10 Absent/Undetectable 0/1 0.10-0.34 Very Low Level 1 0.35-0.69 Low Level 2 0.70-3.49 Moderate Level 3 3.50-17.4 High Level 4 17.5-49.9 Very High Level 5 50-100 Very High Level 6 >100 Very High Level The clinical relevance of allergen results of 0.10-0.34 kU/L are undetermined and intended for specialist use. Allergens denoted with a include results using one or more analyte specific reagents. In those cases, the test was developed and its analytical performance characteristics have been determined by [facility]. It has not been cleared or approved by the U.S. Food and Drug Administration. This assay has been validated pursuant to the CLIA regulations and is used for clinical purposes. RESPIRATORY ALLERGY PROFILE REGION VIII: LYLA, CAITLIN,AKOSUA Reviewed date:05/15/2023 07:36:40 AM Interpretation:Abnormal Performing Lab:[facility], [facility], [address], [place], [address] Lissette Fischer MD Notes/Report: DERMATOPHAGOIDES PTERONYSSIN US (D1) IGE <0.10 CLASS 0 DERMATOPHAGOIDES FARINAE (D2 ) IGE <0.10 CLASS 0 PENICILLIUM NOTATUM (M1) IGE <0.10 CLASS 0 CLADOSPORIUM HERBARUM (M2) IGE <0.10 CLASS 0 ASPERGILLUS FUMIGATUS (M3) IGE <0.10 CLASS 0 ALTERNARIA ALTERNATA (M6) IGE <0.10 CLASS 0 COCKROACH (I6) IGE <0.10 CLASS 0 MAPLE (BOX ELDER) (T1) IGE <0.10 CLASS 0 MOUNTAIN CEDAR (T6) IGE <0.10 CLASS 0 WALNUT TREE (T10) IGE <0.10 CLASS 0 [place]CAM[place] (T11) IGE <0.10 CLASS 0 COTTONWOOD (T14) IGE <0.10 CLASS 0 WHITE SIRISHA (T15) IGE <0.10 CLASS 0 OAK (T7) IGE 0.69 CLASS 1 ELM (T8) IGE <0.10 CLASS 0 HICKORY/PECAN TREE (T22) IGE <0.10 CLASS 0 WHITE MULBERRY (T70) IGE <0.10 CLASS 0 BERMUDA GRASS (G2) IGE <0.10 CLASS 0 KATERIN GRASS (G6) IGE <0.10 CLASS 0 COMMON RAGWEED (SHORT) (W1) IGE 1.12 CLASS 2 ROUGH PIGWEED (W14) IGE <0.10 CLASS 0 TRINIDADIAN THISTLE (W11) IGE <0.10 CLASS 0 ROUGH GAYTAN ELDER (W16) IGE 0.44 CLASS 1 MOUSE URINE PROTEINS (E72) IGE <0.10 CLASS 0 IMMUNOGLOBULIN E 64 <XY=314 kU/L CAT DANDER (E1) IGE 1.22 CLASS 2 DOG DANDER (E5) IGE <0.10 CLASS 0 Reason For Referral No Information Medications Medication SIG (Take, Route, Frequency, Duration) Notes Start Date End Date Status Cetirizine HCl 10 MG 1 tab(s) orally once a day for 30 days 06/05/2023 Active Lisinopril 5 MG 1 tab(s) orally once a day Active Pravastatin Sodium 40 MG 1 tab(s) orally once a day Active traZODone HCl 50 MG as directed orally Active Azelastine HCl 137 MCG/SPRAY 2 spray(s) intranasally 2 times a day for 30 days 06/05/2023 Active AZELASTINE NASAL 137 mcg/inh 2 spray(s) intranasally 2 times a day for 30 days Active Fluticasone Propionate 50 MCG/ACT 1 spray(s) in each nostril twice a day for 30 days Active FLUTICASONE NASAL 50 mcg/inh 1 spray(s) in each nostril twice a day for 30 days Active CETIRIZINE 10 mg 1 tab(s) orally once a day for 30 days Active Montelukast Sodium 10 MG 1 tablet Orally Once a day for 30 days 10/30/2023 Active Ipratropium [place] 0.06 % 2 sprays in each nostril Nasally Four times a day for 30 days 10/30/2023 Active NASAL WASHES N/A DIRECTED INTRANASALLY NEEDED for 30 *Please review for potential replacement for e-prescription and drug interaction check* 06/05/2023 Active Fluticasone Propionate 50 MCG/ACT 1 spray(s) in each nostril twice a day for 30 days 06/05/2023 Active Social History Tobacco Use: Social History Observation Description Date Details (start date - stop date) Former Smoker NA - NA Smoking Smart Form: Question Answer Notes Are you a: never smoker Tobacco Control (Standard) Question Answer Notes Tobacco use: Former smoker Problems Problem Type SNOMED Code ICD Code Onset Dates Problem Status W/U Status Risk Notes Problem Essential hypertension (87168116) Essential (primary) hypertension (I10) Active confirmed Problem Allergic rhinitis caused by pollen (disorder) (45387613) Allergic rhinitis due to pollen (J30.1) Active confirmed Problem Elevated blood pressure reading without diagnosis of hypertension (089480879) Elevated blood-pressure reading, without diagnosis of hypertension (R03.0) Active confirmed Problem Allergic rhinitis caused by animal hair and dander (990801163142939 ) Allergic rhinitis due to animal (cat) (dog) hair and dander (J30.81) Active confirmed Problem Chronic cough (31017294) Chronic cough (R05.3) Active confirmed Vital Signs Respiratory Rate 17 /min 05/09/2023 Oximetry 98 % 10/30/2023 Blood pressure diastolic 106 mm Hg 10/30/2023 Height 72 in 10/30/2023 Blood pressure systolic 163 mm Hg 10/30/2023 Weight 234.4 lbs 10/30/2023 BMI 31.79 kg/m2 10/30/2023 Encounters Encounter Location Date Provider Diagnosis [address] [address] 07/29/2023 Provider Vicente Allergic rhinitis due to pollen J30.1 and Essential (primary) hypertension I10 [facility] [address] [place] [address] [address] 05/09/2023 Alisha Blanton Hypertrophy of nasal turbinates J34.3 ; Chronic rhinitis J31.0 ; Chronic cough R05.3 ; Unspecified abdominal pain R10.9 and Essential (primary) hypertension I10 [place] [address] [facility] [address] [address] 06/05/2023 Alisha Blanton Allergic rhinitis du e to pollen J30.1 ; Allergic rhinitis due to animal (cat) (dog) hair and dander J30.81 ; Chronic cough R05.3 ; Unspecified abdominal pain R10.9 and Essential (primary) hypertension I10 [facility] [address] [address] 10/30/2023 Alisha Blanton Allergic rhinitis du e to pollen J30.1 ; Allergic rhinitis due to animal (cat) (dog) hair and dander J30.81 ; Chronic cough R05.3 ; Unspecified abdominal pain R10.9 and Essential (primary) hypertension I10 [facility] [address] [place] [address] 10/05/2023 Alisha Blanton Allergic rhinitis du e to pollen J30.1 Assessments Encounter Date Diagnosis (ICD Code) Assessment Notes Treatment Notes Treatment Clinical Notes Section Notes 05/09/2023 Chronic rhinitis (ICD-10 - J31.0) See plan above 05/09/2023 Hypertrophy of nasal turbinates (ICD-10 - J34.3) Christopher has been experiencing upper airway symptoms concerning for uncontrolled atopic disease. His symptoms seemed to worsen this Winter, however occur year-round. He does not regularly take antihistamines or use nasal sprays. - Discussed skin testing to aeroallergens today, however could not perform as Christopher took Trazodone last night. - He is unsure if he can hold trazodone to undergo SPT. Will send aeroallergen ImmunoCaps for further evaluations. - Consider bring Christopher back for skin testing pending results. - Return in four weeks for laboratory review 06/05/2023 Allergic rhinitis due to pollen (ICD-10 - J30.1) Christopher has been experiencing upper airway symptoms concerning for uncontrolled atopic disease. His symptoms seemed to worsen this Winter, however occur year-round. He does not regularly take antihistamines or use nasal sprays. - Discussed skin testing to aeroallergens last visit, however unable to perform at this time as Christopher takes trazodone. - Aeroallergen ImmunoCaps ordered that showed positive results to weed and cat. - Accordingly, we have discussed a new, aggressive medication regimen, discussed nasal washes and allergy-specific avoidance measures. - Briefly discussed SCIT, which Christopher is not interested at this time. Unable to perform SPT as above. Christopher is interested in trial of medications and working on avoidance measures. - Follow-up in 6 weeks for further evaluation and management 06/05/2023 Allergic rhinitis due to animal (cat) (dog) hair and dander (ICD-10 - J30.81) Follow allergen avoidance, meds and consider SCIT as an adjunctive treatment to current regimen 07/29/2023 Allergic rhinitis due to pollen (ICD-10 - J30.1) 10/05/2023 Allergic rhinitis due to pollen (ICD-10 - J30.1) 10/30/2023 Allergic rhinitis due to pollen (ICD-10 [...] as above for further evaluation and management 06/05/2023 Chronic cough (ICD-10 - R05.3) Christopher endorses [...] 1 PPD x 20 years. - Christopher again deferred spirometry today. - Considerations for cough include atopic disease vs GERD vs other. - Return in 6 weeks as above for further evaluation and management 05/09/2023 Chronic cough (ICD-10 - R05.3) Christopher endorses [...] smoked 1 PPD x 20 years. - Spirometry deferred today due to OOP cost. Consider obtaining at Christopher's next visit. - Considers for cough include atopic disease vs GERD vs other. - Return in 4 weeks as above for further evaluation, needs ACT at next visit 05/09/2023 Unspecified abdominal pain (ICD-10 - R10.9) Christopher [...] with nutrition. - Consider consult with GI 06/05/2023 Unspecified abdominal pain (ICD-10 - R10.9) Christopher [...] nutrition. - Consider consult with GI 10/30/2023 Unspecified abdominal pain (ICD-10 - R10.9) [...] with PMD. No symptoms of hypertensive crisis 05/09/2023 Essential (primary) hypertension (ICD-10 - I10) BP elevated on PE. Recheck at follow-up and discuss with PMD. No symptoms of hypertensive crisis 07/29/2023 Essential (primary) hypertension (ICD-10 - I10) 06/05/2023 Essential (primary) hypertension (ICD-10 - I10) BP elevated on PE. Recheck at follow-up and discuss with PMD. No symptoms of hypertensive crisis 05/09/2023 Other 06/05/2023 Other 10/30/2023 Other Plan Of Treatment No Information Insurance Providers Payer Name Payer Address Payer Phone Subscriber Number Group Number Insured Name Patient Relationship to Insured Coverage Start Date Coverage End Date [facility] [address] [place] [address] [id number] [address] [place] [address] Christopher Meade Self - patient is the insured 4 Medical (General) History Medical History History ICD Code Hypertension Cholesterol broken ankle Surgical History Surgery Date(Month/Year) Anterior cervical discetomy & fusion Nasal surgury 03/16/2019 Hospitalization History Reason Date(Month/Year) broken ankle 05/12/2023
--- OUTSIDE RECORDS SUMMARY | 2024-05-06 01:58 | XMS_ITS ---
Author Organization [facility] Address [address] [place] [address] Care Team Providers Care Enterprise Application Administrator Name Role Phone Ivonne Valle Primary Care Provider Alisha Tirado [phone] REASON FOR VISIT New Refill Request Medications Medication SIG (Take, Route, Frequency, Duration) Notes Start Date End Date Status Azelastine HCl 137 MCG/SPRAY 2 spray(s) intranasally 2 times a day for 30 days 06/05/2023 Active Encounters Encounter Location Date Provider Diagnosis [facility] [address] [place] [address] 10/05/2023 Alisha Blanton Allergic rhinitis du e to pollen J30.1 Assessments Encounter Date Diagnosis (ICD Code) Assessment Notes Treatment Notes Treatment Clinical Notes Section Notes 10/05/2023 Allergic rhinitis due to pollen (ICD-10 - J30.1) Plan Of Treatment Medication Medication Name Sig Start Date Stop Date Notes Azelastine HCl 137 MCG/SPRAY 2 spray(s) intranasally 2 times a day for 30 days 06/05/2023 Progress Notes * Christopher LEAHYDOB:1975 ( 47 yo M)Acc No.[id number]:10/05/2023 Patient: Christopher SHEPPARD :1975 A ge:47 Y S ex:Male Address:[place] [address] * Refills Refill Azelastine HCl Solution, 137 MCG/SPRAY, intranasally, 1, 2 spray(s), 2 times a day, 30 days, Refills=0 * true * Date: Generated for Mahin salter/Dennis/Dickson on: 0 05/06/2024 01:58 AM CDT
[2024-05-06 06:23] VITALS: BP 144/92; PULSE 63; RESP 18; TEMP 36.1; O2SAT 99
[2024-05-06] MEDS: LACTATED RINGERS 1,000 ML 150 ML IV CONT (06:34)
--- NOTE | 2024-05-06 07:22 | WPDANESEPPF ---
Anes - Initial Pre Proc Eval Procedure: Operation Date: 05/06/24 07:30 Proposed Procedures p Screening Colonoscopy - Timothy Saleh MD Date/Time: 05/06/24 07:22 Surgeon: Timothy Saleh MD Pre Op Diagnosis: screening colon Patient Data Age: 48 Gender: M Height: 1.83 m Weight: 102.6 kg Last Vital Signs Temp 97 F L 05/06/24 06:23 Pulse 63 05/06/24 06:23 Resp 18 05/06/24 06:23 BP 144/92 H 05/06/24 06:23 Pulse Ox 99 05/06/24 06:23 O2 Del Method Room Air 05/06/24 06:23 Allergies Allergy/AdvReac Type Severity Reaction Status Date / Time No Known Allergies Allergy Unknown Verified 05/06/24 06:20 Home Medications ?Medication ?Instructions ?Recorded ?Confirmed ?Type lisinopril 5 mg tablet 5 mg PO DAILY #90 tabs 12/07/23 05/06/24 Rx rosuvastatin 10 mg tablet 10 mg PO DAILY #90 tabs 12/08/23 05/06/24 Rx amitriptyline 10 mg tablet 10 - 20 mg (1 - 2 x 10 mg) PO QHS 03/20/24 05/06/24 Rx #60 tabs Patient hx anesthesia problems: none Family hx anesthesia problems: none Results Review: All pre-operative results and documents have been reviewed as part of the pre-operative evaluation. [facility] Past Medical History Medical History Labral tear of long head of right biceps tendon Closed fracture of right distal fibula Hypercholesterolemia Surgical History Surgical History H/O cervical discectomy Family History Family History Unknown Hypertension High cholesterol Father High cholesterol Heart disease Social History Social History Social History: caffeine use 11/30/23 very confident with medical forms Smoking status: Former smoker Tobacco type: cigarettes Smoking end date: 02/13/07 Alcohol intake: current Drinks per week: 2 Substance use: never Substance use type: does not use Do You Feel Safe in your Home?: Yes Lack of Transportation: No Lack of Food: Never True Current Housing: I Have Housing Concerned About Future Housing: No Difficulty Paying Gas/Electric Bills: No Difficulty Paying for Meds: No Currently Unemployed: No Education: Associate Degree Difficulty w/ Childcare or Family Care: No Living arrangements: with family Occupation/Education: occupation 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 HTN, hyperlipidemia. Informed Consent: The patient's anesthetic plan and its attendant risks and benefits were discussed with the patient/family/POA. Questions were solicited and answers provided to the satisfaction of the patient/family/POA.
--- NOTE | 2024-05-06 07:28 | P.HP_ITS ---
History of Present Illness History of Present Illness Consent: Risks, benefits, and alternatives have been discussed and questions answered. Patient agrees to proceed with procedure. Chief complaint: screening colon Narrative: Christopher Powers is a 48 year old male here for first screening colonoscopy Review of Systems Review of Systems: All systems reviewed & are unremarkable except as noted in HPI and below PMFSH Past Medical History Medical History (Updated 05/06/24 @ 07:30 by Timothy Saleh MD) Colon cancer screening Labral tear of long head of right biceps tendon Closed fracture of right distal fibula Hypercholesterolemia Surgical History Surgical History H/O cervical discectomy Family History Family History Unknown Hypertension High cholesterol Father High cholesterol Heart disease Social History Social History Social History: caffeine use 11/30/23 very confident with medical forms Smoking status: Former smoker Tobacco type: cigarettes Smoking end date: 02/13/07 Alcohol intake: current Drinks per week: 2 Substance use: never Substance use type: does not use Do You Feel Safe in your Home?: Yes Lack of Transportation: No Lack of Food: Never True Current Housing: I Have Housing Concerned About Future Housing: No Difficulty Paying Gas/Electric Bills: No Difficulty Paying for Meds: No Currently Unemployed: No Education: Associate Degree Difficulty w/ Childcare or Family Care: No Living arrangements: with family Occupation/Education: occupation 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 Gender identity (if verbalized by the patient): Male Spiritual care concerns: No Meds Home Medications and Allergies Home Medications ?Medication ?Instructions ?Recorded ?Confirmed ?Type lisinopril 5 mg tablet 5 mg PO DAILY #90 tabs 12/07/23 05/06/24 Rx rosuvastatin 10 mg tablet 10 mg PO DAILY #90 tabs 12/08/23 05/06/24 Rx amitriptyline 10 mg tablet 10 - 20 mg (1 - 2 x 10 mg) PO QHS 03/20/24 05/06/24 Rx #60 tabs Allergies Allergy/AdvReac Type Severity Reaction Status Date / Time No Known Allergies Allergy Unknown Verified 05/06/24 06:20 Vital Signs Vital Signs - 24 hr 05/06/24 06:23 Temperature 97 F L Pulse Rate 63 Respiratory Rate 18 Blood Pressure 144/92 H Pulse Oximetry 99 Oxygen Delivery Room Air Exam Const: General: comfortable and no acute distress HENMT: Face/Nose/Sinus: Normal nares present Eyes: General: appearance normal, both eyes and all related structures Neck: Neck: no JVD Resp: Auscultation: clear to auscultation bilaterally Cardio: Rate: regular rate Rhythm: regular rhythm GI: Inspection: non-distended GI Palp: Yes Soft to palpation Skin: General skin exam: normal color Neuro: General: gait normal Speech: normal speech Extrem: General: normal to inspection Psych: Mental Status: mental status grossly normal Assessment and Plan Assessment and plan (1) Colon cancer screening: Code(s): Z12.11 - Encounter for screening for malignant neoplasm of colon Status: Acute Assessment and Plan: colonoscopy
[2024-05-06 07:47] VITALS: BP 152/96; PULSE 62; RESP 17; O2SAT 99
[2024-05-06 07:57] VITALS: BP 133/83; PULSE 62; RESP 19; O2SAT 99
[2024-05-06 08:07] VITALS: BP 138/90; PULSE 54; RESP 16; O2SAT 99
== END 2024-05-06 08:14 | disposition home or self-care (01) ==
PROVIDERS: PCP Nurse Practitioner Family; Referring Provider Nurse Practitioner Family; Visit Provider Internal Medicine Gastroenterology
PROC: 0DJD8ZZ Inspection of Lower Intestinal Tract, Via Natural or Artificial Opening Endoscopic (ICD-10-PCS; CPT 45378; principal; 2024-05-06 07:30)
DX: Z12.11 Encounter for screening for malignant neoplasm of colon (principal); D12.3 Benign neoplasm of transverse colon; E78.00 Pure hypercholesterolemia, unspecified; Z98.890 Other specified postprocedural states; Z98.1 Arthrodesis status; Z87.891 Personal history of nicotine dependence; Z82.49 Family history of ischemic heart disease and other diseases of the circulatory system
CPT/HCPCS: 45385; 88305; J2704; J7120